=== PATIENT | male | born 1945 | race Hispanic/Latino ===

== ENCOUNTER 2018-10-12 12:36 | Inpatient (IN) | payer OTHER ==
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
[2018-10-12 13:28] LABS: Absolute Lymphocytes (CBC) 0.3 K/uL (0.7-4.9); Basophils % 0.1 % (0-1.3); Eosinophils % 0.9 % (0-4.4); Hematocrit 44.7 % (39.6-49.0); Lymphocytes % 2.6 % (15.3-44.8); MPV 9.2 fL (7.6-11.3); Monocytes % 2.8 % (3.3-12.3); RBC Red Blood Cell Count 5.06 M/uL (4.33-5.43)
[2018-10-12] MEDS ORDERED: NA CHLORIDE 0.9% 1,000 ML ONE ×3 (13:29→17:41)
[2018-10-12 13:30] LABS: Protime INR 1.38
[2018-10-12 13:47] LABS: Albumin 2.4 g/dL (3.4-5.0); Bilirubin Direct 0.2 mg/dL (0-0.2); Bilirubin Total 0.7 mg/dL (0.2-1.0); Magnesium 1.8 mg/dL (1.8-2.4); Potassium 5.1 mmol/L (3.5-5.1); Protein, Total 6.8 g/dL (6.4-8.2)
[2018-10-12 13:49] LABS: Troponin (Emerg Dept Use Only) 3.93 ng/mL (0.0-0.045)
--- NOTE | 2018-10-12 13:53 | RAD REPORT ---
EXAM DESCRIPTION: RAD - Chest Single View - 10/12/2018 1:34 pm CLINICAL HISTORY: Dyspnea COMPARISON: July 2015 TECHNIQUE: AP portable chest image was obtained 1314 hours . FINDINGS: Lung volumes are low. Shallow inspiration and large body habitus accentuate chest findings . No focal lung parenchymal process. No significant failure or volume overload. Pacemaker/defibrillator is in place. Trachea is midline. Heart and vasculature are normal. No measura ble pleural effusion and no pneumothorax. No acute bony abnormality seen. No acute aortic findings pang spected. IMPRESSION: No acute cardiopulmonary process. No worrisome change from comparison.
[2018-10-12 13:57] LABS: Dohle Bodies PRESENT; Platelet Estimate ADEQ
[2018-10-12 13:58] LABS: Blood Morphology Comment NOT SEEN (NOT SEEN)
[2018-10-12] MEDS ORDERED: Levofloxacin500mg IV 500 MG/100 ML BAG IV ONE (14:22)
[2018-10-12] MEDS ORDERED: LEVALBUTEROL 1.25 MG/3 ML NEB ONE (14:38)
[2018-10-12] MEDS ORDERED: METHYLPREDNISOLONE 125 MG INJ ONE (14:38)
[2018-10-12] MEDS ORDERED: FENTANYL CITR 100 MCG/2 ML ONE (14:39)
[2018-10-12] MEDS ORDERED: VANCOMYCIN/NS 1 gm 1 GM/250 ML BAG IV SCH (15:00)
--- NOTE | 2018-10-12 15:06 | EKG ---
Test Date: 2018-10-12 Test Time: 13:14:26 Safety Companion: RADHA MEASUREMENT RESULTS: Intervals: Rate: 83 OK: 108 QRSD: 154 QT: 414 QTc: 486 Ovid: P: 27 OK: 108 QRS: -88 T: 82 INTERPRETIVE STATEMENTS: Electronic ventricular pacemaker Compared to ECG 08/20/2015 17:39:29 Atrial-sensed ventricular-paced complex(es) or rhythm no longer present Electronically Signed On 10-12-18 15:05:20 CDT by Suraj Hooker
--- NOTE | 2018-10-12 15:16 | EDPHYS ---
Physician Documentation [facility] Name: Je Ch Age: 73 yrs Sex: Male : 1945 Arrival Date: 10/12/2018 Time: 12:37 Bed 8 Private MD: ED Physician Pasquale Beck HPI: 10/12 14:24 This 73 yrs old Male presents to ER via Ambulatory with complaints of jr8 Shortness Of Breath. 14:24 The patient has shortness of breath at rest. jr8 15:19 Onset: The symptoms/episode began/occurred suddenly, 2 day(s) ago. Duration: The jr8 symptoms are continuous. The patient's shortness of breath has no apparent modifying factors. Associated signs and symptoms: Pertinent positives: rash and arm pain bilaterally . Severity of symptoms: At their worst the symptoms were moderate in the emergency department the symptoms are unchanged. The patient has not experienced similar symptoms in the past. The patient has been recently seen by a physician:. Patient stated that he was scratched by a cat last week. Was healing fine and did not think anything of it. Stated that two days ago started to have a rash with blistering to both lower arms with increased swelling, redness, and drainage. Now having shortness of breath that he normally does not have . Historical: - Allergies: 12:57 Iodinated Contrast Media - IV Dye; ss - PMHx: 12:57 Diabetes - NIDDM; Hypertension; Myocardial infarction; ss - PSHx: 12:57 Heart stents; pacemaker; CABG; ss - Immunization history:: Adult Immunizations up to date. - Social history:: Smoking status: Patient/guardian denies using tobacco, but has a distant history of tobacco abuse. - Ebola Screening: : Patient denies exposure to infectious person Patient denies travel to an Ebola-affected area in the 21 days before illness onset. ROS: 15:20 Eyes: Negative for injury, pain, redness, and discharge, ENT: Negative for injury, jr8 pain, and discharge, Neck: Negative for injury, pain, and swelling, Cardiovascular: Negative for chest pain, palpitations, and edema, Abdomen/GI: Negative for abdominal pain, nausea, vomiting, diarrhea, and constipation, Back: Negative for injury and pain, MS/Extremity: Negative for injury and deformity, Neuro: Negative for headache, weakness, numbness, tingling, and seizure. 15:20 Respiratory: Positive for dyspnea on exertion, shortness of breath, wheezing. 15:20 Skin: Positive for erythema, lesions. Exam: 15:20 Eyes: Pupils equal round and reactive to light, extra-ocular motions intact. Lids and jr8 lashes normal. Conjunctiva and sclera are non-icteric and not injected. Cornea within normal limits. Periorbital areas with no swelling, redness, or edema. ENT: Nares patent. No nasal discharge, no septal abnormalities noted. Tympanic membranes are normal and external auditory canals are clear. Oropharynx with no redness, swelling, or masses, exudates, or evidence of obstruction, uvula midline. Mucous membranes moist. Neck: Trachea midline, no thyromegaly or masses palpated, and no cervical lymphadenopathy. Supple, full range of motion without nuchal rigidity, or vertebral point tenderness. No Meningismus. Cardiovascular: Regular rate and rhythm with a normal S1 and S2. No gallops, murmurs, or rubs. Normal PMI, no JVD. No pulse deficits. Abdomen/GI: Soft, non-tender, with normal bowel sounds. No distension or tympany. No guarding or rebound. No evidence of tenderness throughout. Back: No spinal tenderness. No costovertebral tenderness. Full range of motion. MS/ Extremity: Pulses equal, no cyanosis. Neurovascular intact. Full, normal range of motion. Neuro: Awake and alert, GCS 15, oriented to person, place, time, and situation. Cranial nerves II-XII grossly intact. Motor strength 5/5 in all extremities. Sensory grossly intact. Cerebellar exam normal. Normal gait. 15:20 Respiratory: mild respiratory distress is noted, Respirations: tachypnea, that is mild, Breath sounds: wheezing: expiratory that is mild, is heard diffusely. 15:20 Skin: Patient has bilateral lower arm bolus like blisters with erythema, serous discharge, and pustulous bloody discharge. No other rashes noted to body. Swelling and edema present to bother lower arms . Vital Signs: 12:57 Pulse 83; Resp 26; Temp 98.0(O); Pulse Ox 100% on R/A; Height 5 ft. 8 in. (172.72 cm); ss 13:19 BP 72 / 44 RL Supine (auto/lg); Pulse 82; Resp 17; Pulse Ox 100% ; sg 13:30 BP 91 / 60; Pulse 81; Resp 34; Pulse Ox 100% on 2 lpm NC; sv 14:00 BP 100 / 71; Pulse 82; Resp 25; Pulse Ox 99% on 2 lpm NC; sv 14:41 BP 94 / 57; Pulse 80 MON; Resp 31; Pulse Ox 100% on Nebulizer Mask; Weight 100.7 kg; sv 15:05 BP 107 / 69; Pulse 79; Resp 32; Pulse Ox 100% ; sv 15:30 BP 97 / 55; Pulse 74; Resp 23; Pulse Ox 99% on 2 lpm NC; sv 16:25 BP 99 / 60; Pulse 76; Resp 28; Pulse Ox 99% on 2 lpm NC; sv 17:00 BP 82 / 50; Pulse 77; Resp 30; Pulse Ox 97% on 2 lpm NC; sv 17:21 BP 84 / 71; Pulse 77; Resp 27; Pulse Ox 97% on 2 lpm NC; sv 17:30 BP 75 / 52; Pulse 74; Resp 29; Temp 98.4(A); Pulse Ox 98% on 30% BiPAP; sv 17:45 BP 92 / 61; Pulse 72; Resp 28; Pulse Ox 100% on 30% BiPAP; sv 18:06 BP 99 / 61; Pulse 76; Resp 29; Pulse Ox 100% on 30% BiPAP; sv 18:20 BP 102 / 63; Pulse 73; Resp 25; Pulse Ox 100% on 30% BiPAP; sv 18:32 BP 79 / 49; Pulse 84; Resp 26; Pulse Ox 99% on 30% BiPAP; sv 18:34 BP 96 / 65; Pulse 84; Resp 26; Pulse Ox 100% on 30% BiPAP; sv 14:41 Body Mass Index 33.75 (100.70 kg, 172.72 cm) sv 13:30 Paced sv 14:00 Paced sv 14:41 Paced sv 17:30 rate-16, 12/6 sv Procedures: 17:25 Central Line: the site was prepped with Betadine, in sterile fashion, a triple lumen jr8 catheter was inserted, in the right femoral vein, in 1 attempts. placement was verified, by blood return, the site was dressed with 4X4s, Tegaderm, foam tape, using sterile technique, the patient tolerated the procedure, well. MDM: 12:41 [facility] screened[facility] 15:13 Data reviewed: vital signs, nurses notes, lab test result(s), EKG, radiologic studies, jr8 plain films, and as a result, I will admit patient. Data interpreted: Pulse oximetry: on room air is 96 %. Interpretation: acceptable. Counseling: I had a detailed discussion with the patient and/or guardian regarding: the historical points, exam findings, and any diagnostic results supporting the discharge/admit diagnosis, lab results, radiology results, the need for further work-up and treatment in the hospital. Physician consultation: Mechelle Calhoun MD was called at 15:13, was contacted at 15:13, regarding admission, to the ICU, patient's condition, and will see patient. 10/12 12:43 Order name: Basic Metabolic Panel; Complete Time: 14:16 [facility] 10/12 12:43 Order name: CBC with Diff; Complete Time: 14:16 [facility] 10/12 12:43 Order name: LFT's; Complete Time: 14:16 [facility] 10/12 12:43 Order name: Magnesium; Complete Time: 14:16 [facility] 10/12 12:43 Order name: NT PRO-BNP; Complete Time: 14:16 [facility] 10/12 12:43 Order name: PT-INR; Complete Time: 13:47 [facility] 10/12 12:43 Order name: Troponin (emerg Dept Use Only); Complete Time: 14:16 [facility] 10/12 12:43 Order name: Blood Culture Adult (2) [facility] 10/12 12:43 Order name: Lipase; Complete Time: 13:47 [facility] 10/12 12:43 Order name: Urine Culture [facility] 10/12 12:43 Order name: Flu; Complete Time: 14:16 [facility] 10/12 12:43 Order name: Procalcitonin; Complete Time: 14:16 [facility] 10/12 12:43 Order name: Lactate; Complete Time: 14:16 [facility] 10/12 13:30 Order name: Wound Culture jr8 10/12 12:43 Order name: XRAY Chest (1 view); Complete Time: 14:16 [facility] 10/12 13:50 Order name: Manual Differential; Complete Time: 14:16 EDMS 10/12 14:24 Order name: Urine Dipstick--Ancillary (enter results); Complete Time: 15:36 bd 10/12 15:20 Order name: ABG; Complete Time: 16:20 jr8 10/12 15:38 Order name: Creatine Phosphokinase; Complete Time: 06:08 [facility] 10/12 15:39 Order name: Troponin I [facility] 10/12 15:39 Order name: Troponin I; Complete Time: 06:08 [facility] 10/12 15:39 Order name: Troponin I; Complete Time: 06:08 [facility] 10/12 15:39 Order name: Troponin I [facility] 10/12 15:42 Order name: Echo with Doppler [facility] 10/12 15:50 Order name: Upper Ext Artery Bilateral; Complete Time: 06:08 [facility] 10/12 15:52 Order name: Thyroid Stimulating Hormone; Complete Time: 17:27 [facility] 10/12 17:03 Order name: T4 Free; Complete Time: 17:27 [facility] 10/12 18:28 Order name: Lactate 10/12 12:43 Order name: EKG; Complete Time: 12:49 [facility] 10/12 12:43 Order name: Cardiac monitoring; Complete Time: 13:12 [facility] 10/12 12:43 Order name: EKG - Nurse/Tech; Complete Time: 13:12 [facility] 10/12 12:43 Order name: IV Saline Lock; Complete Time: 13:12 [facility] 10/12 12:43 Order name: Labs collected and sent; Complete Time: 13:12 [facility] 10/12 12:43 Order name: O2 Per Protocol; Complete Time: 13:12 [facility] 10/12 12:43 Order name: O2 Sat Monitoring; Complete Time: 13:12 [facility] 10/12 12:43 Order name: Urine Dipstick-Ancillary (obtain specimen); Complete Time: 14:19 [facility] 10/12 15:38 Order name: CONS Physician Consult [facility] 10/12 15:38 Order name: CONS Physician Consult [facility] 10/12 15:50 Order name: UPPER EXTREMITY VENOUS BILAT; Complete Time: 06:08 EDMO Administered Medications: 13:18 Drug: NS 0.9% 1000 ml Route: IV; Rate: 125 ml/hr; Site: left jugular; sg 19:06 Follow up: IV Status: Completed infusion sv 14:20 Drug: LevaQUIN 500 mg Volume: 100 ml; Route: IVPB; Infused Over: 60 mins; Site: left sv jugular; 16:26 Follow up: Response: No adverse reaction; IV Status: Completed infusion; IV Intake: sv 100ml 14:30 Drug: NS 0.9% (30 ml/kg) 30 ml/kg Route: IV; Rate: bolus; Site: left jugular; sv 18:50 Follow up: Response: No adverse reaction; IV Status: Completed infusion; IV Intake: sv 3000ml 14:39 Drug: SOLU-Medrol 125 mg Route: IVP; Site: left jugular; sv 14:44 Follow up: Response: No adverse reaction sv 14:39 Drug: Xopenex (3) 1.25 mg Route: Inhalation; sv 16:26 Drug: vancoMYCIN 1 grams Route: IVPB; Infused Over: 2 hrs; Site: left jugular; sv 18:30 Follow up: Response: No adverse reaction; IV Status: Completed infusion; IV Intake: sv 250ml Disposition: 17:26 Critical Care:. jr8 10/13 05:52 Co-signature as Attending Physician, Pasquale Beck MD I agree with the assessment and elsy plan of care. Disposition: 10/12/18 15:15 Hospitalization ordered by Mechelle Calhoun for Inpatient Admission. Preliminary diagnosis are Sepsis, Cellulitis of left upper limb, Cellulitis of right upper limb, Acute kidney failure, Non-ST elevation (NSTEMI) myocardial infarction. - Bed requested for Intensive Care Unit. - Status is Inpatient Admission. sv - Condition is Fair. - Problem is new. - Symptoms have improved. UTI on Admission? No Critical care time excluding procedures: 10/12 17:26 Critical care time: Bedside Care: 20 minutes, Consultation: 10 minutes, Family jr8 Intervention: 10 minutes. Total time: 40 minutes Signatures: Dispatcher [employer] EDMO Melissa West Stephanie, RN RN sv Gay, Steven, RN RN sg Anderson, Corey, MD MD cha Smirch, Shelby, RN RN ss Roszak, Josh, PA PA jr8 Corrections: (The following items were deleted from the chart) 13:50 13:39 CBC Smear Scan ordered. EDMO EDMO 15:20 14:24 The patient has shortness of breath at rest, jr8 jr8 15:38 15:15 Hospitalization Ordered by Mechelle Calhoun MD for Inpatient Admission. Preliminary jr8 diagnosis is Sepsis; Cellulitis of left upper limb; Cellulitis of right upper limb. Bed requested for Intensive Care Unit. Status is Inpatient Admission. Condition is Fair. Problem is new. Symptoms have improved. UTI on Admission? No. jr8 15:51 15:38 Thyroid Stimulating Hormone ordered. [facility] EDMO 17:01 15:38 10/12/2018 15:15 Hospitalization Ordered by Mechelle Calhoun MD for Inpatient bd Admission. Preliminary diagnosis is Sepsis; Cellulitis of left upper limb; Cellulitis of right upper limb; Acute kidney failure; Non-ST elevation (NSTEMI) myocardial infarction. Bed requested for Intensive Care Unit. Status is Inpatient Admission. Condition is Fair. Problem is new. Symptoms have improved. UTI on Admission? No. jr8 18:59 17:01 10/12/2018 15:15 Hospitalization Ordered by Mechelle Calhoun MD for Inpatient sv Admission. Preliminary diagnosis is Sepsis; Cellulitis of left upper limb; Cellulitis of right upper limb; Acute kidney failure; Non-ST elevation (NSTEMI) myocardial infarction. Bed requested for Intensive Care Unit. Status is Inpatient Admission. Condition is Fair. Problem is new. Symptoms have improved. UTI on Admission? No. bd
--- NOTE | 2018-10-12 15:16 | ER ---
Nurse's Notes [facility] Name: Je Ch Age: 73 yrs Sex: Male : 1945 Arrival Date: 10/12/2018 Time: 12:37 Bed 8 Private MD: Diagnosis: Sepsis;Cellulitis of left upper limb;Cellulitis of right upper limb;Acute kidney failure;Non-ST elevation (NSTEMI) myocardial infarction Presentation: 10/12 12:38 Presenting complaint: Patient states: Redness, swelling, drainage and severe pain to ss bilateral forearms and hands that began 2 days ago. Sent from [place] for further evaluation/ higher level of care. Transition of care: patient was not received from another setting of care. Onset of symptoms was October 10, 2018. Risk Assessment: Do you want to hurt yourself or someone else? Patient reports no desire to harm self or others. Initial Sepsis Screen: Does the patient meet any 2 criteria? RR > 20 per min. Does the patient have a suspected source of infection? Yes: Skin breakdown/wound. Care prior to arrival: dressing placed to bilateral arms by [facility]. Removed by Myself and MG Castillo for assessment. 12:38 Method Of Arrival: Ambulatory 12:38 Acuity: GENEVIEVE 2 ss Historical: - Allergies: 12:57 Iodinated Contrast Media - IV Dye; ss - PMHx: 12:57 Diabetes - NIDDM; Hypertension; Myocardial infarction; ss - PSHx: 12:57 Heart stents; pacemaker; CABG; ss - Immunization history:: Adult Immunizations up to date. - Social history:: Smoking status: Patient/guardian denies using tobacco, but has a distant history of tobacco abuse. - Ebola Screening: : Patient denies exposure to infectious person Patient denies travel to an Ebola-affected area in the 21 days before illness onset. Screenin:20 Abuse screen: Denies threats or abuse. Denies injuries from another. Nutritional sv screening: No deficits noted. Tuberculosis screening: No symptoms or risk factors identified. Fall Risk None identified. Assessment: 13:00 General: Appears distressed, uncomfortable, well developed, Behavior is calm, sv cooperative, appropriate for age. Pain: Complains of pain in right arm and left arm Pain currently is 10 out of 10 on a pain scale. Quality of pain is described as tender, throbbing, Is continuous, Aggravated by increased activity, repositioning. Neuro: Level of Consciousness is awake, alert, obeys commands, Oriented to person, place, time, situation, Moves all extremities. Speech is normal. Cardiovascular: Patient's skin is warm and dry. Rhythm is ventricular pacer with capture. Respiratory: Reports shortness of breath at rest on exertion labored breathing Airway is patent Respiratory effort is even, labored, Respiratory pattern is symmetrical, tachypnea. Derm: Skin with poor turgor Skin is normal, redness, swelling, weeping, fluid filled blisters on BUE. 14:20 Reassessment: Patient appears in no apparent distress at this time. No changes from sv previously documented assessment. Patient and/or family updated on plan of care and expected duration. Pain level reassessed. Patient is alert, oriented x 3, equal unlabored respirations, skin warm/dry/pink. 14:25 Reassessment: Informed Jonh HOLLIDAY that pt has audible wheezing, updated vitals. Medication sv orders received. 15:35 Reassessment: ABG ordered by Jonh HOLLIDAY, pt refuses d/t pain from arms. Informed Jonh HOLLIDAY, sv ok to do a VBG. VBG drawn and given to Roxy CLIP ON SUNGLASSES ASSEMBLER to be ran. 15:41 Reassessment: Patient appears in no apparent distress at this time. No changes from sv previously documented assessment. Patient and/or family updated on plan of care and expected duration. Pain level reassessed. Patient is alert, oriented x 3, equal unlabored respirations, skin warm/dry/pink. 16:26 Reassessment: Patient appears in no apparent distress at this time. Patient and/or sv family updated on plan of care and expected duration. Pain level reassessed. 17:15 Reassessment: Patient appears in no apparent distress at this time. No changes from sv previously documented assessment. Patient and/or family updated on plan of care and expected duration. Pain level reassessed. 17:25 Reassessment: Dr Calhoun at the bedside. sv 17:30 Reassessment: Roxy CLIP ON SUNGLASSES ASSEMBLER at bedside with BIPAP. sv 17:34 Reassessment: Ultrasound at the bedside. sv 18:06 General: Appears in no apparent distress. comfortable, Behavior is calm, cooperative, sv appropriate for age. Neuro: Level of Consciousness is obeys commands, sleepy but can be woken up with no difficulty. BIPAP on pt.. Oriented to person, place, time, situation. Cardiovascular: Patient's skin is warm and dry. Rhythm is ventricular pacer with capture. Respiratory: Airway is patent Respiratory effort is even, unlabored, Respiratory pattern is symmetrical, tachypnea. 18:41 Reassessment: Repeat lactate sent to lab. sv Vital Signs: 12:57 Pulse 83; Resp 26; Temp 98.0(O); Pulse Ox 100% on R/A; Height 5 ft. 8 in. (172.72 cm); ss 13:19 BP 72 / 44 RL Supine (auto/lg); Pulse 82; Resp 17; Pulse Ox 100% ; sg 13:30 BP 91 / 60; Pulse 81; Resp 34; Pulse Ox 100% on 2 lpm NC; sv 14:00 BP 100 / 71; Pulse 82; Resp 25; Pulse Ox 99% on 2 lpm NC; sv 14:41 BP 94 / 57; Pulse 80 MON; Resp 31; Pulse Ox 100% on Nebulizer Mask; Weight 100.7 kg; sv 15:05 BP 107 / 69; Pulse 79; Resp 32; Pulse Ox 100% ; sv 15:30 BP 97 / 55; Pulse 74; Resp 23; Pulse Ox 99% on 2 lpm NC; sv 16:25 BP 99 / 60; Pulse 76; Resp 28; Pulse Ox 99% on 2 lpm NC; sv 17:00 BP 82 / 50; Pulse 77; Resp 30; Pulse Ox 97% on 2 lpm NC; sv 17:21 BP 84 / 71; Pulse 77; Resp 27; Pulse Ox 97% on 2 lpm NC; sv 17:30 BP 75 / 52; Pulse 74; Resp 29; Temp 98.4(A); Pulse Ox 98% on 30% BiPAP; sv 17:45 BP 92 / 61; Pulse 72; Resp 28; Pulse Ox 100% on 30% BiPAP; sv 18:06 BP 99 / 61; Pulse 76; Resp 29; Pulse Ox 100% on 30% BiPAP; sv 18:20 BP 102 / 63; Pulse 73; Resp 25; Pulse Ox 100% on 30% BiPAP; sv 18:32 BP 79 / 49; Pulse 84; Resp 26; Pulse Ox 99% on 30% BiPAP; sv 18:34 BP 96 / 65; Pulse 84; Resp 26; Pulse Ox 100% on 30% BiPAP; sv 14:41 Body Mass Index 33.75 (100.70 kg, 172.72 cm) sv 13:30 Paced sv 14:00 Paced sv 14:41 Paced sv 17:30 rate-16, 12/6 sv ED Course: 12:37 Patient arrived in ED. as 12:41 Pasquale Beck MD is Attending Physician. elsy 12:52 Louisa Clayton, STIVEN is Primary Nurse. sv 12:56 Triage completed. ss 12:57 Arm band placed on right wrist. ss 13:05 Jonh Hensley PA is PHCP. jr8 13:10 EJ PIV access. Initial lab(s) drawn, by ED staff, sent to lab. Inserted saline lock: 20 sg gauge in left EJ, using aseptic technique. Blood collected. IV inserted by Jonathan HOLLIDAY. 13:10 First set of blood cultures drawn by physician. sv 13:20 Patient has correct armband on for positive identification. Placed in gown. Bed in low sv position. Call light in reach. Side rails up X2. Adult w/ patient. threat monitoring analyst on. Pulse ox on. NIBP on. Door closed. Head of bed elevated. 13:35 XRAY Chest (1 view) In Process Unspecified. EDMS 13:38 Flu and/or RSV swab sent to lab. sg 13:45 Second set of blood cultures drawn by physician. sv 15:14 Mechelle Calhoun MD is Hospitalizing Provider. jr8 17:20 Assisted provider with central line placement. Set up central line tray. Triple lumen sv line placed in right femoral. Line placed by Jonh HOLLIDAY Placement verified by blood return, Dressed with Tegaderm, Patient tolerated well. Before procedure, did Practitioner(s) obtain informed consent? No. Patient \T\ family education about procedure, CLABSI prevention and S/S of infection? Yes. Time-out/Briefing performed prior to start of procedure? Yes. Was handwashing/sanitizing done immediately prior to procedure? Yes. Was patient positioned to in a way to prevent air embolism? Yes. Was procedure site sterilized? Yes, with chlorhexidine. Was the site allowed to dry? Yes. Was local anesthetic and/or sedation utilized? Yes. During the procedure, did the Practitioner(s) maintain a sterile field? Yes. Were unused ports clamped during insertion? Yes. Was a 2nd qualified MD obtained after 3 unsuccessful insertion attempts? Yes. Was blood aspirated from each lumen? Yes. After the procedure, did the Practitioner(s) clean the site and apply a sterile dressing? Yes. 18:08 Patient admitted, IV remains in place. intact. sv Administered Medications: 13:18 Drug: NS 0.9% 1000 ml Route: IV; Rate: 125 ml/hr; Site: left jugular; sg 19:06 Follow up: IV Status: Completed infusion sv 14:20 Drug: LevaQUIN 500 mg Volume: 100 ml; Route: IVPB; Infused Over: 60 mins; Site: left sv jugular; 16:26 Follow up: Response: No adverse reaction; IV Status: Completed infusion; IV Intake: sv 100ml 14:30 Drug: NS 0.9% (30 ml/kg) 30 ml/kg Route: IV; Rate: bolus; Site: left jugular; sv 18:50 Follow up: Response: No adverse reaction; IV Status: Completed infusion; IV Intake: sv 3000ml 14:39 Drug: SOLU-Medrol 125 mg Route: IVP; Site: left jugular; sv 14:44 Follow up: Response: No adverse reaction sv 14:39 Drug: Xopenex (3) 1.25 mg Route: Inhalation; sv 16:26 Drug: vancoMYCIN 1 grams Route: IVPB; Infused Over: 2 hrs; Site: left jugular; sv 18:30 Follow up: Response: No adverse reaction; IV Status: Completed infusion; IV Intake: sv 250ml Intake: 16:26 IV: 100ml; Total: 100ml. sv 18:30 IV: 250ml; Total: 350ml. sv 18:50 IV: 3000ml; Total: 3350ml. sv Outcome: 15:15 Decision to Hospitalize by Provider. jr8 17:52 Admitted to ICU accompanied by nurse, accompanied by tech, family with patient, via sv stretcher, room 1, with oxygen, on monitor, with chart, Report called to Mesha SALEEM 17:52 Condition: stable 17:52 Instructed on the need for admit. 18:59 Patient left the ED. sv Signatures: Dispatcher [employer] Louisa Arvizu RN RN sv Gay, Steven, RN RN sg Anderson, Corey, MD MD cha Martinez, Amelia as Smirch, Louisa, RN RN ss Jonh Hensley PA PA jr8 Corrections: (The following items were deleted from the chart) 18:06 17:30 BP 75 / 52; Pulse 74bpm; Resp 29bpm; Pulse Ox 98% 02 30% BiPAP; Temp 98.4F sv Axillary; sv
[2018-10-12 15:32] LABS: Urine Blood 1+ (NEG); Urine Glucose NEGATIVE (NEG); Urine Protein 3+ (NEG); Urine Specific Gravity 1.025 (1.005-1.030)
[2018-10-12 15:40] LABS: Blood O2 Saturation 73.2 % (92-98.5)
[2018-10-12 16:49] LABS: Thyroid Stimulating Hormone 4.4 uIU/mL (0.360-3.740)
[2018-10-12] MEDS ORDERED: AZITHROMYCIN IV 500 MG in NA CHLORIDE 0.9% 250 ML IVPB SCH (17:00)
--- NOTE | 2018-10-12 17:01 | P.HP ---
Certification for Inpatient Patient admitted to: Inpatient With expected LOS: >2 Midnights Patient will require the following post-hospital care: None Practitioner: I am a practitioner with admitting privileges, knowledge of patient current condition, hospital course, and medical plan of care. Services: Services provided to patient in accordance with Admission requirements found in Title 42 Section 412.3 of the Code of Federal Regulations Patient History Date of Service: 10/12/18 Primary Care Provider: [facility] Reason for admission: BL UE swelling and SOB History of Present Illness: The 73-year-old male with significant past medical history of diabetes, hypertension, hyperlipidemia, MARIZA who presented to the ED complaining of having bilateral upper extremity swelling. Patient also complained of having some shortness of breath. Patient stated that his swelling had started on Thursday night and then he started getting short of breath on Thursday night. Patient was not getting better and thus he got worse progressively and thus decided to come to the ER. Patient stated that about a week ago he was scratched by his cat but no other trauma was noted. [facility] which he was sent over here for further workup. Patient denies having any fever chills nausea vomiting abdominal pain chest pain or any other associated symptoms. No sick contacts. No open wounds prior to this episode. In the ER patient had extensive workup done, workup was consistent with sepsis and patient also had respiratory distress and thus the decision was made to admit the patient to the ICU for further workup and treatment. Allergies No Known Drug Allergies Allergy (Unverified 04/17/14 03:00) Unknown No Allergy Information Av Allergy (Uncoded 08/20/15 19:16) Unknown Home medications list reviewed: Yes - Past Medical/Surgical History Has patient received pneumonia vaccine in the past: No Diabetic: Yes -: HTN -: Diabetes -: CAD -: Defibrillator/pacemaker in place -: Obesity - Family History Family History: Reviewed- Non-Contributory - Social History Smoking Status: Former smoker Counseled patient to stop smoking for: more than 10 minutes Smoking therapy provided: Yes Patient receptive to therapy: Yes Alcohol use: No CD- Drugs: No Caffeine use: No Place of Residence: Home Review of Systems 10-point ROS is otherwise unremarkable Physical Examination - Physical Exam General: Alert, Mild distress Respiratory: Normal air movement, Expiratory wheezes, Inspiratory wheezes Cardiovascular: Regular rate/rhythm, Normal S1 S2 Gastrointestinal: Normal bowel sounds, No tenderness Musculoskeletal: Erythema, Tenderness, Warmth, Other (Bilateral upper extremity with swelling, bulae and ) Integumentary: Skin breakdown, Skin lesion, Tenderness/swelling, Erythema, Warmth Neurological: Normal speech, Normal tone Lymphatics: No axilla or inguinal lymphadenopathy - Studies Laboratory Data (last 24 hrs) 10/12/18 13:00: Lipase 40 L 10/12/18 13:00: PT 16.1 H, INR 1.38 10/12/18 13:00: WBC 12.0 H, Hgb 14.6, Hct 44.7, Plt Count 266 10/12/18 13:00: Sodium 133 L, Potassium 5.1, BUN 65 H, Creatinine 3.18 H, Glucose 147 H, Magnesium 1.8, Total Bilirubin 0.7, AST 67 H, ALT 37, Alkaline Phosphatase 100 Microbiology Data (last 24 hrs): 10/12/18 13:30 Nasopharnyx Influenza Type A Antigen Screen - Final 10/12/18 13:30 Nasopharnyx Influenza Type B Antigen Screen - Final Assessment and Plan - Problems (Diagnosis) (1) Sepsis Current Visit: Yes Status: Acute Plan: Patient currently with severe sepsis, with fluctuating blood pressure and tachycardia most likely secondary to bilateral upper extremity infection -initial pro calcitonin and lactic acid elevated -blood culture and wound cultures collected pending at this time -started on IV vanc and levaquin in the ER. will also add IV zosyn. -will follow up with wound culture and blood cultures here shortly Qualifiers: Sepsis type: sepsis due to unspecified organism Qualified Code(s): A41.9 - Sepsis, unspecified organism (2) Cellulitis of upper extremity Current Visit: Yes Status: Acute Plan: Bilateral upper extremity cellulitis after a cat scratch possibly cat scratch disease -currently bilateral extremity swelling erythematous and tender to touch wiht bullae -started on IV vancomycin and zosyn -will get extremity venous and arterial Dopplers to rule out any acute abnormality -patient was also given IV steroids in the ER -will follow patient closely and follow up with wound cultures and imaging studies Qualifiers: Laterality: unspecified laterality Qualified Code(s): L03.119 - Cellulitis of unspecified part of limb (3) Respiratory distress Current Visit: Yes Status: Acute Plan: Respiratory distress with initial tachypnea and tachycardia patient with history of MARIZA -ABGs with respiratory acidosis. Will start patient on BiPAP at this time -will monitor patient closely, x-ray with no acute abnormality (4) UBALDO (acute kidney injury) Current Visit: Yes Status: Acute Plan: UBALDO most likely secondary to ATN -IV fluids at 50 cc an hr cautious given the elevated BNP -nephrology consulted. Awaiting recommendations at this time will monitor closely (5) CAD (coronary artery disease) Current Visit: Yes Status: Acute Plan: CAD with history of CABG and defibrillator/pacemaker placed -will monitor closely -initial troponins were elevated most likely secondary to sepsis -cardiology is consulted. Will await further recommendation -elevated BNP as well -echocardiogram with ejection fraction of 61 percentage with dilated ventricles. Qualifiers: Coronary Disease-Associated Artery/Lesion type: pala artery [place] vs. transplanted heart: pala heart Associated angina: with stable angina Qualified Code(s): I25.118 - Atherosclerotic heart disease of pala coronary artery with other forms of angina pectoris (6) Hypertension Current Visit: Yes Status: Chronic Plan: Currently patient is hypotensive will continue to monitor here in the hospital Qualifiers: Hypertension type: essential hypertension Qualified Code(s): I10 - Essential (primary) hypertension (7) Diabetes Current Visit: Yes Status: Chronic Plan: Insulin sliding scale and Accu-Cheks Qualifiers: Diabetes mellitus type: type 2 Diabetes mellitus bed bug exterminator insulin use: without bed bug exterminator use Diabetes mellitus complication status: without complication Qualified Code(s): E11.9 - Type 2 diabetes mellitus without complications Discharge Plan: Home Plan to discharge in: Greater than 2 days - Advance Directives Does patient have a Living Will: No Does patient have a Durable POA for Healthcare: No - Code Status/Comfort Care Code Status Assessed: Yes Critical Care: Yes
[2018-10-12] MEDS ORDERED: NA CHLORIDE 0.9% 1,000 ML IV SCH ×2 (17:32→18:00)
[2018-10-12] MEDS ORDERED: ALBUTEROL 2.5 MG/3 ML NEB SOL NEB PRN (17:32)
[2018-10-12] MEDS ORDERED: IPRATROPIUM BROM 0.5MG/2.5ML NEB PRN (17:32)
[2018-10-12] MEDS ORDERED: PIPER/TAZO/NS 2.25gm 2.25 GM/50 ML BAG IVPB SCH (18:00)
--- NOTE | 2018-10-12 18:54 | RAD REPORT ---
EXAM DESCRIPTION: US - Upper Ext Artery Bilateral - 10/12/2018 6:32 pm CLINICAL HISTORY: Swelling and Infection Arm pain COMPARISON: No comparisons FINDINGS: Doppler interrogation of both upper extremity arterial systems was performed. Normal triph asic waveforms are seen throughout both upper extremity arterial systems proximally. Distal artery as sessment was precluded by clinical situation. No occlusion or high-grade stenosis. IMPRESSION: Negative study.
--- NOTE | 2018-10-12 18:55 | RAD REPORT ---
EXAM DESCRIPTION: US - UPPER EXTREMITY VENOUS BILAT - 10/12/2018 6:32 pm CLINICAL HISTORY: Swelling and Infection COMPARISON: No comparisons FINDINGS: No evidence of deep venous thrombosis seen above the level of the antecubital veins bilate rally in the upper extremity venous system. The distal veins could not be assessed due to the patient 's clinical status. IMPRESSION: Negative study.
[2018-10-12] MEDS ORDERED: PIPER/TAZO/NS 2.25gm 2.25 GM/50 ML BAG IVPB ONE (19:00)
[2018-10-12] MEDS: ENOXAPARIN 40 MG/0.4 ML SQ SCH (19:22)
[2018-10-12] MEDS ORDERED: NA CHLORIDE 0.9% 50 ML ONE (19:47)
[2018-10-12] MEDS ORDERED: VANCOMYCIN 1.5 GM in NA CHLORIDE 0.9% 500 ML IVPB ONE (21:00)
[2018-10-12 21:39] LABS: Troponin I 2.42 ng/mL (0.0-0.045)
[2018-10-12] MEDS: D5W 1,000 ML with NA BICARB 8.4% 100 MEQ IV SCH ×2 (22:35)
[2018-10-12] MEDS ORDERED: NOREPINEPHRINE 4 MG/4 ML VIAL ONE (22:36)
[2018-10-12] MEDS ORDERED: D5W 250 ML IV ONE (22:36)
[2018-10-12] MEDS ORDERED: D5W 1,000 ML IV ONE (22:37)
[2018-10-12] MEDS: NOREPINEPHRINE 4 MG in D5W 250 ML IV PRN (23:05)
[2018-10-13] MEDS: PIPER/TAZO/NS 2.25gm 2.25 GM/50 ML BAG IVPB SCH ×2 (01:24→09:45)
[2018-10-13 05:09] LABS: Absolute Lymphocytes (CBC) 0.1 K/uL (0.7-4.9); Basophils % 0.1 % (0-1.3); Eosinophils % 0.4 % (0-4.4); Hematocrit 35.4 % (39.6-49.0); Lymphocytes % 1.9 % (15.3-44.8); MPV 9.2 fL (7.6-11.3); Monocytes % 1.5 % (3.3-12.3); RBC Red Blood Cell Count 4.08 M/uL (4.33-5.43)
[2018-10-13 05:26] LABS: Albumin 1.7 g/dL (3.4-5.0); Bilirubin Total 0.5 mg/dL (0.2-1.0); Magnesium 1.8 mg/dL (1.8-2.4); Phosphorus 3.3 mg/dL (2.5-4.9); Protein, Total 5.3 g/dL (6.4-8.2)
[2018-10-13 05:27] LABS: Troponin I 1.78 ng/mL (0.0-0.045)
[2018-10-13] MEDS ORDERED: MAGNESIUM SULFATE 1 gm IVPB 1 GM/100 ML BAG IV ONE (05:31)
[2018-10-13] MEDS ORDERED: FENTANYL CITR 100 MCG/2 ML IV PRN (06:12)
[2018-10-13] MEDS ORDERED: ALBUMIN HUMAN 25% 100 ML IV ONE (06:12)
[2018-10-13] MEDS ORDERED: NA CHLORIDE 0.9% 500 ML IV ONE (06:24)
--- NOTE | 2018-10-13 08:06 | RAD REPORT ---
EXAM DESCRIPTION: [place] Single View10/13/2018 5:46 am CLINICAL HISTORY: Shortness of breath COMPARISON: October 12, 2018 FINDINGS: The lungs appear clear of acute infiltrate. The heart is mildly enlarged. Postsurgical changes involve the chest. IMPRESSION: No acute abnormalities displayed
--- NOTE | 2018-10-13 08:38 | ECHO ---
HEIGHT: 5 ft 8 in WEIGHT: 224 lb 4.8 oz DATE OF STUDY: 10/12/[address]: Mechelle Calhoun MD 2-DIMENSIONAL: YES M.MODE: YES DOPPLER: YES COLOR FLOW: YES TDS: NO PORTABLE: NO DEFINITY: NO BUBBLE STUDY: NO DIAGNOSIS: CONGESTIVE HEART FAILURE CARDIAC HISTORY: CATHERIZATION: NO SURGERY: NO PROSTHETIC VALVE: NO PACEMAKER: YES MEASUREMENTS (cm) DIASTOLIC (NORMALS) SYSTOLIC (NORMALS) IVSd 1.2 (0.6-1.2) LA Diam (1.9-4.0) LVEF 61% LVIDd 4.1 (3.5-5.7) LVIDs 2.8 (2.0-3.5) %FS 32% LVPWd 1.3 (0.6-1.2) Ao Diam 2.9 (2.0-3.7) 2 DIMENSIONAL ASSESSMENT: RIGHT ATRIUM: NORMAL LEFT ATRIUM: DILATED RIGHT VENTRICLE: PACEMAKER CATHETER LEFT VENTRICLE: LEFT VENTRICULAR HYPERTROPHY TRICUSPID VALVE: NORMAL MITRAL VALVE: NORMAL PULMONIC VALVE: NORMAL AORTIC VALVE: NORMAL PERICARDIAL EFFUSION: NONE AORTIC ROOT: NORMAL LEFT VENTRICULAR WALL MOTION: NORMAL DOPPLER/COLOR FLOW: NORMAL COMMENTS: NORMAL LEFT VENTRICULAR EJECTION FRACTION. LEFT VENTRICULAR HYPERTROPHY. DILATED LEFT ATRIUM. PACEMAKER IN RIGHT VENTRICLE. TECHNOLOGIST: Fern CARVER
--- NOTE | 2018-10-13 09:15 | CON ---
History Of Present Illness: Mr. Ch is 73. He came to the hospital with weakness, fevers, chi lls, and the skin on his arms, especially the forearms, looks very abnormal like there is both cellul itis and blebs, all this consistent with sepsis. I am asked to see him because his troponins are yane vated. They are elevated consistently, not in a rising and falling pattern as is usually seen with a myocardial infarction. He is not having chest pain. An echocardiogram has been done and it does no t show any wall motion abnormality, ejection fraction is normal, and it is very likely that the tropo red elevation is not an indication of acute coronary syndrome but a secondary effect of septicemia. The patient has a history of stents being put in his heart; the last one was at least several years a go. He has had a pacemaker for several years. It has been revised several times, and the most recen t revision, it is a defibrillator. There is no evidence of defibrillator malfunction by telemetry mo nitor and no defibrillator discharges. Physical Examination: General: He is 5 feet 8 inches, 224 pounds. Vital Signs: Blood pressure 96/50, heart rate 83. He appears to be in sinus rhythm with atrial sens ing, ventricular pacing. Lungs: Clear. Heart: Within normal limits. Abdomen: Soft. Skin: The skin on both forearms has large blebs and evidence of cellulitis. Laboratory Data: He had an elevated white count when he came in. Today's white blood cell count is 7.9 with a left shift. Troponins 3.93, 2.42, 1.78. Procalcitonin level was 85, consistent with sept icemia. A lactic acid level was 5.3 also. Assessment And Plan: So, I think we can safely attribute the troponin elevation to septicemia and no t consider this to be an acute coronary syndrome or myocardial infarction. SH/MODL Voice ID: [id number] Report ID: [id number]
[2018-10-13] MEDS: D5W 1,000 ML with NA BICARB 8.4% 100 MEQ IV SCH ×2 (09:45)
[2018-10-13] MEDS: ENOXAPARIN 40 MG/0.4 ML SQ SCH (09:46)
[2018-10-13] MEDS ORDERED: GLUCAGON 1 MG/VIAL IM PRN (11:11)
[2018-10-13] MEDS ORDERED: D50W 25 GM/50 ML SYRINGE IV PRN (11:11)
[2018-10-13] MEDS: INSULIN -REGULAR HUMAN 50 UNIT/0.5 ML ML SQ SCH ×2 (12:00→16:27)
--- NOTE | 2018-10-13 12:12 | P.PN ---
Subjective Date of Service: 10/13/18 Primary Care Provider: [facility] Chief Complaint: BL UE swelling and SOB Patient seen and examined at bedside with RN. Chart reviewed. Case discussed with general surgery, nephrology, cardiology, and patient at bedside. Overnight patient was found to have hypotension and was started on Levophed for pressure support. At this time patient is pending transfer to the [facility]. Review of Systems 10-point ROS is otherwise unremarkable Physical Examination - Vital Signs Temperature: 97.5 F Blood Pressure: 99/61 Pulse: 72 Respirations: 28 Pulse Ox (%): 99 - Physical Exam General: Alert, In no apparent distress Respiratory: Normal air movement, Expiratory wheezes, Inspiratory wheezes Cardiovascular: Regular rate/rhythm, Normal S1 S2, Edema Gastrointestinal: Normal bowel sounds, No tenderness Musculoskeletal: Erythema, Tenderness, Warmth, Other (Bullae and BL Cellulitis ) Integumentary: Rash(es), Skin breakdown, Skin lesion, Tenderness/swelling, Erythema, Warmth Neurological: Normal speech, Normal tone, Normal affect Lymphatics: No axilla or inguinal lymphadenopathy - Studies Laboratory Data (last 24 hrs) 10/12/18 13:00: Lipase 40 L 10/12/18 13:00: PT 16.1 H, INR 1.38 10/12/18 13:00: WBC 12.0 H, Hgb 14.6, Hct 44.7, Plt Count 266 10/12/18 13:00: Sodium 133 L, Potassium 5.1, BUN 65 H, Creatinine 3.18 H, Glucose 147 H, Magnesium 1.8, Total Bilirubin 0.7, AST 67 H, ALT 37, Alkaline Phosphatase 100 Microbiology Data (last 24 hrs): 10/12/18 13:30 Nasopharnyx Influenza Type A Antigen Screen - Final 10/12/18 13:30 Nasopharnyx Influenza Type B Antigen Screen - Final Medications List Reviewed: Yes Assessment And Plan - Current Problems (Diagnosis) (1) Sepsis Current Visit: Yes Status: Acute Plan: Patient currently with severe sepsis with shock, with hydrodynamic Instability most likely secondary to bilateral upper extremity infection -initial pro calcitonin and lactic acid elevated -blood culture and wound cultures collected pending at this time -on IV doxycycline , Zosyn and Rocephin -higher risk for vibrio vulnificus given their history of [employer] fishing recently after which his cellulitis started -currently also on Levophed for pressure support Qualifiers: Sepsis type: sepsis due to unspecified organism Qualified Code(s): A41.9 - Sepsis, unspecified organism (2) Cellulitis of upper extremity Current Visit: Yes Status: Acute Plan: Bilateral upper extremity cellulitis possibly infection with repairable in thickness with recent exposure to swallow water and fish -currently bilateral extremity swelling erythematous and tender to touch with bullae -on IV doxycycline, Zosyn and Rocephin -extremity venous and artery Dopplers are negative at this time for any acute abnormality -wound care consulted. Awaiting recommendations. Will provide with wet dressing at this time -patient has extreme water losses through the wounds at this time. Will start transfer process to the [facility] for continuation of care and possible burn unit placement Qualifiers: Laterality: unspecified laterality Qualified Code(s): L03.119 - Cellulitis of unspecified part of limb (3) Respiratory distress Current Visit: Yes Status: Acute Plan: Respiratory distress with initial tachypnea and tachycardia patient with history of MARIZA -ABGs with respiratory acidosis. On BiPAP at this time -we patient to nasal cannula as tolerated -will monitor patient closely, x-ray with no acute abnormality (4) UBALDO (acute kidney injury) Current Visit: Yes Status: Acute Plan: UBALDO most likely secondary to ATN versus ibuprofen use -IV fluids at 100 ml/hr -nephrology consulted. Recommendations appreciated at this time -BUN and creatinine improving today (5) CAD (coronary artery disease) Current Visit: Yes Status: Acute Plan: CAD with history of CABG and defibrillator/pacemaker placed -will monitor closely -initial troponins were elevated most likely secondary to sepsis -cardiology is consulted. Ruminations of appreciated at this time -echocardiogram with ejection fraction of 61 percentage with dilated ventricles. Qualifiers: Coronary Disease-Associated Artery/Lesion type: [place] artery [place] vs. transplanted heart: [place] heart Associated angina: with stable angina Qualified Code(s): I25.118 - Atherosclerotic heart disease of [place] coronary artery with other forms of angina pectoris (6) Hypertension Current Visit: Yes Status: Chronic Plan: Currently patient is hypotensive will continue to monitor here in the hospital Qualifiers: Hypertension type: essential hypertension Qualified Code(s): I10 - Essential (primary) hypertension (7) Diabetes Current Visit: Yes Status: Chronic Plan: Insulin sliding scale and Accu-Cheks Qualifiers: Diabetes mellitus type: type 2 Diabetes mellitus superintendent marine oil terminal insulin use: without superintendent marine oil terminal use Diabetes mellitus complication status: without complication Qualified Code(s): E11.9 - Type 2 diabetes mellitus without complications Discharge Plan: Home Plan to discharge in: Greater than 2 days - Code Status/Comfort Care Code Status Assessed: Yes Critical Care: Yes
[2018-10-13] MEDS ORDERED: NACHLORIDE 0.45% 1,000 ML with NA BICARB 8.4% 100 MEQ IV SCH ×2 (13:00)
[2018-10-13] MEDS ORDERED: DOXYCYCLINE 100 MG in NA CHLORIDE 0.9% 100 ML IVPB SCH (13:00)
[2018-10-13] MEDS ORDERED: CEFTRIAXONE/SWI 1gm 1 GM/10 ML SYR IV SCH (13:00)
[2018-10-13] MEDS: NOREPINEPHRINE 4 MG in D5W 250 ML IV PRN (14:41)
--- NOTE | 2018-10-13 14:46 | CON ---
Date of Consultation: 10/13/2018 Reason For Consultation: Acidosis, elevated BUN and creatinine, fluid management. History Of Present Illness: This is a pleasant 73-year-old gentleman with significant past medical h istory of diabetes complicated with neuropathy, hypertension, hyperlipidemia, obstructive sleep apnea , coronary artery disease without any congestive heart failure with echocardiogram has been done in t his admission with ejection fraction above 60%. The patient was in his regular state of health. Acc ording to him for the last few days his legs swelled and he started having swelling on the upper extr emity. Patient took ibuprofen almost 400 daily for the last few days. Patient denied any IV contras t. Patient went to his primary care in the [place], found to have the swelling on the upper extremity, re vipin to the hospital. In the hospital, primary workup showed elevated BUN and creatinine, low blood p ressure. The patient was admitted with septic shock. Reviewing the record for the patient, the ling ent on admission yesterday creatinine 3.1, today 2.1 trending down, back in 2016 creatinine 1.2. GFR yesterday 19, today 29, before back in 2016 was 57. The patient on home medication as metformin, ot herwise no other . The patient had low blood pressure, being on Levophed. Past Medical History: Coronary artery disease CHF, hyperlipidemia, diabetes complicated w ith neuropathy. Allergies: NO KNOWN DRUGS ALLERGY. Social History: Ex-smoker. Denied alcohol. Denied drugs abuse. Family History: Positive for hypertension. Past Surgical History: ICD placement. Review of Systems: Head and Neck: No red eye. No ear pain. GI: No nausea, no vomiting. : No polyuria, no dysuria, no hematuria. D[employer] Operator: Not applicable. Respiratory: Has shortness of breath. Cardiovascular: Has leg swelling, has orthopnea. Musculoskeletal: No joint pain. Has upper extremity pain. Endocrine: No polydipsia. Skin: No rash. Neuro: Has neuropathy. Cardiovascular: Has orthopnea. Physical Examination: Vital Signs: When I saw the patient, blood pressure 109/67, pulse of 88. Chest: Clear to auscultation. Heart: S1, S2. Regular. Abdomen: Soft, nontender. Extremity: Significant swelling with blister on the upper extremity. Trace edema on the lower extre mity with severe venous stasis change. Laboratory Data: Today, sodium 136, potassium 4, bicarb 19, BUN 65, creatinine 2.1, calcium 7.1, lac tic acid 2.2, magnesium 1.8, phosphorus 3.3, troponin 1.7, albumin 1.7 Yesterday Lab Data: Creatinine 3.1, potassium 5.1. Bicarb of 17. Assessment And Plan: Acute kidney injury on chronic kidney disease secondary to prerenal poor perfus ion, ATN superimposed with metformin use/toxic ATN secondary to sepsis, nonoliguric, marginal hyperka lemia, mild acidosis. 1.I am going to go ahead and change IV fluids to half-normal with one and half amp. We will send fo r the workup given the presence of the blister, autoimmune disease need to be ruled out even though t he urinalysis did not show any activity on the UA. We will send for full serology. I agree with cur rent antibiotics. 2.Hold all nonsteroidals. Hold metformin and hold all blood pressure medication. 3.Hypertension, currently hypotension with the presence of acute kidney injury. Hold all blood pres sure medication. 4.Chronic kidney disease with acute kidney injury as above. 5.Sepsis secondary to cellulitis with possible burn, agree with current antibiotic. 6.Possible burn. I agree with hydration. 7.Acidosis secondary to renal failure/metformin. We will start the patient on bicarb drip. 8.Diabetes as by primary. 9.Hyperkalemia, resolved. Current Medications: The patient on include Zosyn 2.25 q.8, vancomycin, albuterol, albumin, D5 with 2 amp of bicarb, fentanyl. Thank you, Dr. Calhoun for allowing us to participate in the care of your patient. SHANTANU/EULALIO Voice ID: [id number] Report ID: [id number]
--- NOTE | 2018-10-13 16:41 | RAD REPORT ---
EXAM DESCRIPTION: US - Renal Ultrasound-Complete - 10/13/2018 4:22 pm CLINICAL HISTORY: UBALDO Flank pain COMPARISON: <Comparisons> FINDINGS: Both kidneys are normal in size, shape and echotexture. Bilateral benign renal cysts noted . The right kidney measures 11.5 x 5.7 x 4.7 cm. No hydronephrosis, focal mass or perinephric fluid. The left kidney measures 14.6 x 7.7 x 5.5 cm. No hydronephrosis, focal mass or perinephric fluid. The urinary bladder is incompletely distended without gross abnormality seen. IMPRESSION: Benign bilateral renal cysts, otherwise negative study.
--- NOTE | 2018-10-13 17:19 | P.DS ---
Admission Date: 10/12/18 Discharge Date: 10/13/18 Primary Care Provider: [facility] Reason for Admission: BL UE swelling and SOB - Problems (1) Sepsis Current Visit: Yes Status: Acute Qualifiers: Sepsis type: sepsis due to unspecified organism Qualified Code(s): A41.9 - Sepsis, unspecified organism (2) Cellulitis of upper extremity Current Visit: Yes Status: Acute Qualifiers: Laterality: unspecified laterality Qualified Code(s): L03.119 - Cellulitis of unspecified part of limb (3) Respiratory distress Current Visit: Yes Status: Acute (4) UBALDO (acute kidney injury) Current Visit: Yes Status: Acute (5) CAD (coronary artery disease) Current Visit: Yes Status: Acute Qualifiers: Coronary Disease-Associated Artery/Lesion type: [place] artery [place] vs. transplanted heart: [place] heart Associated angina: with stable angina Qualified Code(s): I25.118 - Atherosclerotic heart disease of [place] coronary artery with other forms of angina pectoris (6) Hypertension Current Visit: Yes Status: Chronic Qualifiers: Hypertension type: essential hypertension Qualified Code(s): I10 - Essential (primary) hypertension (7) Diabetes Current Visit: Yes Status: Chronic Qualifiers: Diabetes mellitus type: type 2 Diabetes mellitus retail assistant insulin use: without retirement use Diabetes mellitus complication status: without complication Qualified Code(s): E11.9 - Type 2 diabetes mellitus without complications Brief History of Present Illness: The 73-year-old male with significant past medical history of diabetes, hypertension, hyperlipidemia, MARIZA who presented to the ED complaining of having bilateral upper extremity swelling. Patient also complained of having some shortness of breath. Patient stated that his swelling had started on Thursday night and then he started getting short of breath on Thursday night. Patient was not getting better and thus he got worse progressively and thus decided to come to the ER. Patient stated that about a week ago he was scratched by his cat but no other trauma was noted. Patient was sent over to the [facility] from which he was sent over here for further workup. Patient denies having any fever chills nausea vomiting abdominal pain chest pain or any other associated symptoms. No sick contacts. No open wounds prior to this episode. In the ER patient had extensive workup done, workup was consistent with sepsis and patient also had respiratory distress and thus the decision was made to admit the patient to the ICU for further workup and treatment. Hospital Course: Overall pt remained stable. Pt was admitted to the hospital for septic shock and respiratory Distress. Septic Shock was most likely 2.2 to BL UE cellulitis 2.2 to Vibrious Valnificus. Pt was given IV vanc, zosyn and Switched to Doxycycline and Rocephin. Pt was also started on Levaphed. Pt also was found to have UBALDO. Nephrology was consulted. pt was started on IV fluids. Pt was improving from the sepsis and UBALDO stand point. However due to the extent of the bullae and involvement of the cellulitis it was recc for patient to go the [facility] for Sterile room and possible vera unit for sabra treatment. Pt was refereed to [facility] for continuity of care and was accepted and transferred Vital Signs/Physical Exam: Temp Pulse Resp BP Pulse Ox 97.5 F 77 34 H 108/62 97 10/13/18 12:17 10/13/18 16:45 10/13/18 16:45 10/13/18 16:45 10/13/18 16:45 General: Alert, In no apparent distress HEENT: Atraumatic, PERRLA, EOMI Neck: Supple, JVD not distended Respiratory: Clear to auscultation bilaterally, Normal air movement Cardiovascular: Regular rate/rhythm, Normal S1 S2 Gastrointestinal: Normal bowel sounds, No tenderness Musculoskeletal: Erythema, Tenderness, Warmth Integumentary: No rashes Neurological: Normal speech, Normal tone, Normal affect Lymphatics: No axilla or inguinal lymphadenopathy Laboratory Data at Discharge: WBC 7.9 K/uL (4.3-10.9) D 10/13/18 04:30 Hgb 11.7 g/dL (13.6-17.9) L D 10/13/18 04:30 Hct 35.4 % (39.6-49.0) L D 10/13/18 04:30 Plt Count 209 K/uL (152-406) D 10/13/18 04:30 PT 16.1 SECONDS (9.5-12.5) H 10/12/18 13:00 INR 1.38 10/12/18 13:00 Sodium 136 mmol/L (136-145) 10/13/18 04:30 Potassium 4.0 mmol/L (3.5-5.1) 10/13/18 04:30 BUN 65 mg/dL (7-18) H 10/13/18 04:30 Creatinine 2.19 mg/dL (0.55-1.3) H 10/13/18 04:30 Glucose 227 mg/dL (74-106) H 10/13/18 04:30 Phosphorus 3.3 mg/dL (2.5-4.9) 10/13/18 04:30 Magnesium 1.8 mg/dL (1.8-2.4) 10/13/18 04:30 Total Bilirubin 0.5 mg/dL (0.2-1.0) 10/13/18 04:30 AST 47 U/L (15-37) H 10/13/18 04:30 ALT 31 U/L (12-78) 10/13/18 04:30 Alkaline Phosphatase 72 U/L (45-117) 10/13/18 04:30 Troponin I 1.78 ng/mL (0.0-0.045) H* 10/13/18 04:30 Lipase 40 U/L (73-393) L 10/12/18 13:00 Home Medications: Allopurinol 100 mg PO BID PRN 10/12/18 Alogliptin Benzoate [Alogliptin] 25 mg PO DAILY 10/12/18 Amlodipine [Norvasc] 5 mg PO DAILY 10/12/18 Aspirin [Aspir-Low] 81 mg PO DAILY 10/12/18 Atorvastatin Calcium [Lipitor] 40 mg PO BEDTIME 10/12/18 Metformin HCl 1,000 mg PO BID 10/12/18 Metoprolol Succinate [Toprol Xl] 100 mg PO DAILY 10/12/18
--- NOTE | 2018-10-13 17:30 | CON ---
History Of Present Illness: Patient is a 73-year-old male in ICU. Denies any headache, nausea, vomi ting, chest pain, abdominal pain, constipation, or diarrhea. Patient has significant history of diab etes mellitus, hypertension, hyperlipidemia, osteoarthritis, came in with cellulitis of upper extremi ty and sepsis, and acute renal injury. 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 Denies any other problems. Past Medical History: As per HPI. Social History: Nonsmoker. Nondrinker. Family History: Noncontributory. Medication: Rocephin and doxycycline. See MARs for other medication. Allergies: IODINE. Review of Systems: A 10-point review was performed. Physical Examination: General: This is a 73-year-old male, lying in bed, not in any acute cardiopulmonary distress. Vital signs: Temperature 97.5, pulse 92, respirations 18, blood pressure 99/61. HEENT: Unremarkable. Neck: Supple. Lungs: Basal crackles. Heart: S1, S2. Regular. Abdomen: Soft, nontender. Bowel sounds present. Extremities: 3+ edema. Blisters noted on the upper extremity, left more than right. Laboratory Data: Shows WBC 7.9, down from 12,000; hemoglobin 11.7; platelets are 209. Chemistry marlene ws sodium 136, potassium 4, chloride 106, bicarb 19, BUN 65, creatinine 2.19, glucose 227. Troponin is 1.78. Assessment And Plan: Bilateral upper extremity cellulitis, sepsis. Leukocytosis is improving. Cont inue antibiotic and supportive care. Blisters were opened up by using blade #10 under sterile condit ion. Continue supportive care. Keep arms elevated. NF/MODL Voice ID: [id number] Report ID: [id number]
[2018-10-14] MEDS ORDERED: VANCOMYCIN 1.75 GM in NA CHLORIDE 0.9% 500 ML IVPB SCH ×2 (09:00→21:00)
== END 2018-10-13 17:00 | DRG 871 ==
LOC: ER 12:36 → ERHOLD 15:35 → 3RD-ICU 17:53
PROVIDERS: ADMIT Family Medicine; ATTEND Family Medicine
DX: A41.9 Sepsis, unspecified organism (principal); R65.21 Severe sepsis with septic shock; L03.114 Cellulitis of left upper limb; N17.9 Acute kidney failure, unspecified; L03.113 Cellulitis of right upper limb; E87.2 Acidosis; R06.03 Acute respiratory distress; Z95.1 Presence of aortocoronary bypass graft; Z95.810 Presence of automatic (implantable) cardiac defibrillator; E11.9 Type 2 diabetes mellitus without complications; R23.8 Other skin changes; I10 Essential (primary) hypertension; G47.33 Obstructive sleep apnea (adult) (pediatric); I25.119 Atherosclerotic heart disease of native coronary artery with unspecified angina pectoris; E78.5 Hyperlipidemia, unspecified; B96.82 Vibrio vulnificus as the cause of diseases classified elsewhere
CPT/HCPCS: 36415; 71045; 76770; 80048; 80053; 80076; 81003; 82550; 82805; 82962; 83605; 83690; 83735; 83880; 84100; 84145; 84439; 84443; 84484; 85025; 85610; 86038; 87040; 87070; 87077; 87086; 87088; 87186; 87205; 87804; 93005; 93306; 93930; 93970; 94660; 94760; 96361; 96365; 96366; 96367; 96375; 99285; J0456; J0696; J1650; J2930; J3010; J3370; J3475; J7030; J7060; P9047

== ENCOUNTER 2022-12-03 16:28 | Inpatient (IN) | payer OTHER ==
--- OUTSIDE RECORDS SUMMARY | 2022-12-03 16:30 | XMS REPORT | Continuity of Care Document ---
:1945 Author Organization [facility] t Address [address] [place] [address] Care Team Providers Name Role Phone EMA DUKES Attending Clinician Unavailable Problems This patient has no known problems. Allergies, Adverse Reactions, Alerts This patient has no known allergies or adverse reactions. Medications This patient has no known medications. Procedures This patient has no known procedures. Encounters Start End Encounter Admission Attending Care Care Encounter Source Date/Time Date/Time Type Type Clinicians Facility Department ID 2022-08-20 2022-08-20 Outpatient DEIDRE DUKES [facility] [id number] [place] 09:47:00 09:47:00 EMA [id number] [facility] 2022-04-10 2022-04-10 Outpatient DEIDRE Dukes [facility] [id number] [place] 11:27:00 11:27:00 Ema [id number] [facility] Results This patient has no known results.
--- NOTE | 2022-12-03 17:35 | RAD REPORT ---
EXAM DESCRIPTION: CT - Ct Stroke Brain Wo Cont - 12/03/2022 5:26 pm CLINICAL HISTORY: Slurred speech COMPARISON: 2016 TECHNIQUE: Computed axial tomography of the head was obtained. All CT scans are performed using dose optimization technique as appropriate and may include automated exposure control or mA/KV adjustment according to patient size. FINDINGS: An intracranial bleed is not seen . The ventricles are normal in caliber. No extra-axial fluid collection is noted. 5.5 centimeter low-density area within the left cerebrum consistent with gliosis probably secondary t o old infarct. 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 Fluid within the sinuses/ mastoids is not seen. IMPRESSION: No acute intracranial abnormality is seen. If patient's symptoms persist MRI of the bra in would be recommended Dr Angulo of the emergency room was notified at 5:30 p.m. on December 03, 2022
[2022-12-03 17:48] LABS: Absolute Lymphocytes (CBC) 1.1 K/uL (0.7-4.9); Lymphocytes % 22.5 % (15.3-44.8); MCV 97.1 fL (80-100); MPV 8.4 fL (7.6-11.3); Platelets 130 thou/uL (152-406); RBC Red Blood Cell Count 3.51 M/uL (4.33-5.43)
[2022-12-03 17:59] LABS: Protime INR 1.25
--- NOTE | 2022-12-03 18:09 | RAD REPORT ---
EXAM DESCRIPTION: RAD - STROKE CXR 1 VIEW - 12/03/2022 6:00 pm CLINICAL HISTORY: r/o stroke COMPARISON: Chest Single View dated 10/13/2018 FINDINGS: Left subclavian approach pacemaker/ ICD. Cardiomegaly. The lungs are clear. No edema or co nsolidation. No fractures are identified. Visualized upper abdomen is unremarkable. IMPRESSION: No acute cardiopulmonary disease.
[2022-12-03 18:16] LABS: Albumin 3.6 g/dL (3.4-5.0); Bilirubin Direct 0.1 mg/dL (0-0.2); Bilirubin Indirect, Calculated 0.3 mg/dL (0.2-0.8); Bilirubin Total 0.4 mg/dL (0.2-1.0); Magnesium 2.4 mg/dL (1.6-2.4); Potassium 4.2 mEq/L (3.5-5.1); Troponin High Sensitivity 28.1 pg/mL (<58.9)
--- NOTE | 2022-12-03 18:27 | ER ---
Nurse's Notes [facility] Name: Je Ch Age: 77 yrs Sex: Male : 1945 Arrival Date: 12/03/2022 Time: 16:28 Bed 16 Private MD: Diagnosis: Acute kidney failure, unspecified;Altered mental status, unspecified;Facial droop Presentation: 12/03 17:06 Chief complaint: EMS states: the [facility] called them as the patient wasn't acting me1 like himself and he has slurred speech and R facial droop. Patient does have a hx of CVA. Coronavirus screen: Vaccine status: Patient reports receiving the 2nd dose of the covid vaccine. Ebola Screen: No symptoms or risks identified at this time. Initial Sepsis Screen: Does the patient meet any 2 criteria? No. Patient's initial sepsis screen is negative. Does the patient have a suspected source of infection? No. Patient's initial sepsis screen is negative. Risk Assessment: Do you want to hurt yourself or someone else? Patient reports no desire to harm self or others. Onset of symptoms is unknown. 17:06 Method Of Arrival: EMS: [place] [id number] 17:06 Acuity: GENEVIEVE 3 me1 Triage Assessment: 17:08 General: Appears comfortable, well groomed, well developed, well nourished, Behavior is me1 calm, cooperative, appropriate for age, Reports dizziness and "feeling off balance" for about a week. Pain: Denies pain. Neuro: Level of Consciousness is awake, alert, obeys commands, Oriented to person, place, time, situation, Appropriate for age Prn Physical Therapist are equal bilaterally Moves all extremities. Speech is slurred, Facial droop on right, Facial symmetry: tongue is midline, Pupils are PERRLA. Cardiovascular: Capillary refill < 3 seconds Patient's skin is warm and dry. Respiratory: Airway is patent Respiratory effort is even, unlabored, Respiratory pattern is regular, symmetrical. Historical: - Allergies: 17:08 Iodinated Contrast Media - IV Dye; me1 - PMHx: 17:08 Diabetes - NIDDM; Hypertension; Myocardial infarction; Pacemaker; me1 - Immunization history:: Adult Immunizations unknown. - Social history:: Smoking status: Patient reports the use of cigarette tobacco products, smokes one-half pack cigarettes per day. - Family history:: not pertinent. - Hospitalizations: : No recent hospitalization is reported. Screenin:12 [facility] ED Fall Risk Assessment (Adult) History of falling in the last 3 months, me1 including since admission No falls in past 3 months (0 pts) Confusion or Disorientation No (0 pts) Intoxicated or Sedated No (0 pts) Impaired Gait Yes (1 pt) Mobility Assist Device Used Yes (1 pt) Altered Elimination No (0 pt) Score/Fall Risk Level 0 - 2 = Low Risk. Abuse screen: Denies threats or abuse. Nutritional screening: No deficits noted. Tuberculosis screening: No symptoms or risk factors identified. Assessment: 17:12 General: see triage assesssment. me1 19:00 Reassessment: Patient appears in no apparent distress at this time. Patient is alert, me1 oriented x 3, equal unlabored respirations, skin warm/dry/pink. Patient denies pain at this time. 21:00 Reassessment: Patient appears in no apparent distress at this time. Patient is alert, me1 oriented x 3, equal unlabored respirations, skin warm/dry/pink. Patient denies pain at this time. 22:46 Reassessment: Patient appears in no apparent distress at this time. Patient is alert, me1 oriented x 3, equal unlabored respirations, skin warm/dry/pink. Patient denies pain at this time. Vital Signs: 17:06 BP 110 / 48; Pulse 70; Resp 18; Temp 97.2(O); Pulse Ox 100% on R/A; Weight 80.74 kg; me1 Height 5 ft. 8 in. ; Pain 0/10; 18:00 BP 105 / 59; Pulse 72; Resp 16; Pulse Ox 100% on R/A; me1 19:00 BP 105 / 64; Pulse 70; Resp 15; Pulse Ox 100% on R/A; me1 20:00 BP 110 / 62; Pulse 70; Resp 15; Pulse Ox 100% ; me1 21:00 BP 103 / 63; Pulse 75; Resp 14; Pulse Ox 100% on R/A; me1 22:00 BP 102 / 66; Pulse 72; Resp 14; Pulse Ox 100% ; me1 22:30 BP 103 / 67; Pulse 70; Resp 14; Pulse Ox 99% on R/A; me1 23:10 BP 92 / 63; Pulse 71; Resp 16; Pulse Ox 99% on R/A; me1 17:06 Body Mass Index 27.06 (80.74 kg, 172.72 cm) me1 17:06 Pain Scale: Adult me1 NIH Stroke Scale Scores: 16:57 NIHSS Score: 3 golf tournament consultant Course: 16:52 Patient arrived in ED. rn 16:52 Braydon Angulo MD is Attending Physician. rn 17:06 Caitie Wang, STIVEN is Primary Nurse. me1 17:08 Triage completed. me1 17:08 Arm band placed on Patient placed in an exam room. me1 17:12 Patient has correct armband on for positive identification. Bed in low position. Call me1 light in reach. Side rails up X2. Provided Education on: POC. Verbalized understanding.. 17:12 No provider procedures requiring assistance completed. Maintain EMS IV. Dressing me1 intact. Good blood return noted. Site clean \\T\\ dry. Gauge \\T\\ site: [address] 17[address]26 [address] Stroke Brain Wo Cont In Process Unspecified. EDMS 17:37 Basic Metabolic Panel Sent. me1 17:37 CBC with Diff Sent. me1 17:37 Hepatic Function Sent. me1 17:37 High Sensitivity Troponin Sent. me1 17:37 Magnesium Sent. me1 17:37 Protime (+inr) Sent. me1 17:37 Ptt, Activated Sent. me1 17:56 STROKE CXR 1 VIEW Sent. me1 18:02 STROKE CXR 1 VIEW In Process Unspecified. EDMS 18:25 Lex Gleason MD is Hospitalizing Provider. rn Administered Medications: 18:54 Drug: NS 0.9% IV 500 ml Route: IV; Rate: bolus; Site: right antecubital; me1 19:50 Follow up: IV Status: Completed infusion me1 Medication: 17:12 VIS not applicable for this client. wv1 Point of Care Testing: Blood Glucose: 17:59 Blood Glucose: 132 mg/dL; wv1 Ranges: Outcome: 18:26 Decision to Hospitalize by Provider. rn 23:09 Admitted to Med/surg accompanied by tech, via wheelchair, room 402, Report called to me Tasha García RN 23:09 Condition: stable 12/04 00:00 Patient left the ED. wv1 NIH Stroke Scale - NIH Stroke Score Date: 12/03/2022 Time: 16:57 Total Score = 3 10. Dysarthria (speech clarity - read or repeat words) - 1(Mild to Moderate) 11. Extinction and Inattention (visual/tactile/auditory/spatial/personal) - 0(No abnormality) 1a. Level of Consciousness (LOC) - 0(Alert) 1b. Level of Consciousness (LOC) (Month \\T\\ Age) - 0(Both) 1c. LOC Commands (Open \\T\\ Closes Eyes/Boring Machine Set Up Operator) - 0(Both) 2. Best Gaze (Lateral Gaze Paresis) - 0(Normal) 3. Visual Field Loss - 0(No visual loss) 4. Facial Palsy - 2(Partial paralysis) 5a. Left Arm: Motor (10-second hold) - 0(No drift) 5b. Right Arm: Motor (10-second hold) - 0(No drift) 6a. Left Leg: Motor (5-second hold - always test supine) - 0(No drift) 6b. Right Leg: Motor (5-second hold - always test supine) - 0(No drift) 7. Limb Ataxia (finger/nose \\T\\ heel/oconnor - test with eyes open) - 0(Absent) 8. Sensory Loss (pinprick arms/legs/face) - 0(Normal) 9. Best Language: Aphasia (description/naming/reading) - 0(No aphasia) Initials: rn Signatures: Dispatcher [employer] Braydon Ortiz MD MD rn Eddleman, Michelle, RN RN me1 Corrections: (The following items were deleted from the chart) 12/03 22:46 22:45 Reassessment: Patient appears in no apparent distress at this time. me1 Patient is alert, oriented x 3, equal unlabored respirations, skin warm/dry/pink. Patient denies pain at this time. me1
--- NOTE | 2022-12-03 18:27 | EDPHYS ---
Physician Documentation [facility] Name: Je Ch Age: 77 yrs Sex: Male : 1945 Arrival Date: 12/03/2022 Time: 16:28 Bed 16 Private MD: ED Physician Braydon Angulo HPI: 12/03 16:54 This 77 yrs old Male presents to ER via Unassigned with complaints of Slurred rn speech, facial droop. 16:54 The patient presents to the emergency department with a speech or higher order brain rn function problem. Onset: The symptoms/episode began/occurred 1 week(s) ago. Context: occurred at home, occurred while the patient was. Associated signs and symptoms: Pertinent negatives: fever, headache, neck stiffness, seizure, syncope, double vision, visual field changes, loss of vision, weakness. Severity of symptoms: At their worst the symptoms were moderate in the emergency department the symptoms are unchanged. Current symptoms: dysphasia. The patient has not experienced similar symptoms in the past. The patient has been recently seen by a physician:. Patient sent from [facility] for stroke evaluation. Patient reports not feeling right for the last week with dizziness and feeling like he is going to fall. Was noted to have a facial droop and not acting normal per his physician. No head injury. No fall. No changes in medication. Has had a stroke before but thinks only takes aspirin. Symptoms started about 1 week ago progressively worsening. Historical: - Allergies: 17:08 Iodinated Contrast Media - IV Dye; me1 - PMHx: 17:08 Diabetes - NIDDM; Hypertension; Myocardial infarction; Pacemaker; me1 - Immunization history:: Adult Immunizations unknown. - Social history:: Smoking status: Patient reports the use of cigarette tobacco products, smokes one-half pack cigarettes per day. - Family history:: not pertinent. - Hospitalizations: : No recent hospitalization is reported. ROS: 16:54 Constitutional: Negative for fever, chills, and weight loss, Eyes: Negative for injury, rn pain, redness, and discharge, Neck: Negative for injury, pain, and swelling, Cardiovascular: Negative for chest pain, palpitations, and edema, Respiratory: Negative for shortness of breath, cough, wheezing, and pleuritic chest pain, Abdomen/GI: Negative for abdominal pain, nausea, vomiting, diarrhea, and constipation, Back: Negative for injury and pain, MS/Extremity: Negative for injury and deformity, Skin: Negative for injury, rash, and discoloration, Neuro: Positive for dizziness and facial droop Exam: 16:54 Constitutional: This is a well developed, well nourished patient who is awake, alert, rn and in no acute distress. Head/Face: Normocephalic, atraumatic. Eyes: Pupils equal round and reactive to light, extra-ocular motions intact. Cardiovascular: Regular rate and rhythm. No pulse deficits. Respiratory: No increased work of breathing, no retractions or nasal flaring. Abdomen/GI: Soft, non-tender MS/ Extremity: Pulses equal, no cyanosis. Neurovascular intact. Full, normal range of motion. Equal circumference. Neuro: Awake and alert, GCS 15, oriented to person, place, time, and situation. Right lower facial droop with forehead sparing. Motor strength 4/5 in all extremities. Sensory grossly intact. Positive slurred speech 19:46 ECG was reviewed by the Attending Physician. rn Vital Signs: 17:06 BP 110 / 48; Pulse 70; Resp 18; Temp 97.2(O); Pulse Ox 100% on R/A; Weight 80.74 kg; me1 Height 5 ft. 8 in. ; Pain 0/10; 18:00 BP 105 / 59; Pulse 72; Resp 16; Pulse Ox 100% on R/A; me1 19:00 BP 105 / 64; Pulse 70; Resp 15; Pulse Ox 100% on R/A; me1 20:00 BP 110 / 62; Pulse 70; Resp 15; Pulse Ox 100% ; me1 21:00 BP 103 / 63; Pulse 75; Resp 14; Pulse Ox 100% on R/A; me1 22:00 BP 102 / 66; Pulse 72; Resp 14; Pulse Ox 100% ; me1 22:30 BP 103 / 67; Pulse 70; Resp 14; Pulse Ox 99% on R/A; me1 23:10 BP 92 / 63; Pulse 71; Resp 16; Pulse Ox 99% on R/A; me1 17:06 Body Mass Index 27.06 (80.74 kg, 172.72 cm) ca1 17:06 Pain Scale: Adult [facility] NIH Stroke Scale Scores: 16:57 NIHSS Score: 3 rn MDM: 16:52 Patient medically screened. rn 17:30 Discussion of test interpretation with radiology: I had a discussion with radiology practitioner assistant regarding a test interpretation. CT head without discussed with radiologist Dr. Lakhani, states no acute findings but does see 2 old infarcts of the left cerebrum and also the cerebellum but look old. 18:25 Data reviewed: vital signs, nurses notes, lab test result(s), EKG, radiologic studies, rn CT scan, and as a result, I will admit patient. Consideration of Admission/Observation Patient was admitted/placed on observation. Escalation of care including admission/observation considered. Management of patient was discussed with the following: Hospitalist: . Counseling: I had a detailed discussion with the patient and/or guardian regarding the historical points, exam findings, and any diagnostic results supporting the discharge/admit diagnosis, lab results, radiology results, the need for further work-up and treatment in the hospital. Response to treatment: the patient's symptoms have mildly improved after treatment, and as a result, I will admit patient. 12/03 16:53 Order name: Basic Metabolic Panel; Complete Time: 18:21 12/03 16:53 Order name: CBC with Diff 12/03 16:53 Order name: Hepatic Function; Complete Time: 18:21 12/03 16:53 Order name: High Sensitivity Troponin; Complete Time: 18:21 12/03 16:53 Order name: Magnesium; Complete Time: 18:21 12/03 16:53 Order name: Protime (+inr); Complete Time: 18:21 12/03 16:53 Order name: Ptt, Activated; Complete Time: 18:21 12/03 18:10 Order name: Glucose, Ancillary Testing; Complete Time: 18:21 [facility] 12/03 19:25 Order name: CBC Smear Scan [facility] 12/03 16:59 Order name: Ct Stroke Brain Wo Cont; Complete Time: 18:21 [facility] 12/03 16:59 Order name: STROKE CXR 1 VIEW; Complete Time: 18:21 [facility] 12/03 16:53 Order name: EKG; Complete Time: 17:05 12/03 17:00 Order name: EKG Electrocardiogram; Complete Time: 17:49 [facility] 12/03 16:53 Order name: Accucheck; Complete Time: 17:58 12/03 16:53 Order name: Cardiac monitoring; Complete Time: 17:37 rn 12/03 16:53 Order name: EKG - Nurse/Tech; Complete Time: 17:49 rn 12/03 16:53 Order name: IV Saline Lock; Complete Time: 17:37 rn 12/03 16:53 Order name: Labs collected and sent; Complete Time: 17:37 rn 12/03 16:53 Order name: NPO; Complete Time: 17:37 rn 12/03 16:53 Order name: O2 Per Protocol; Complete Time: 17:37 rn 12/03 16:53 Order name: O2 Sat Monitoring; Complete Time: 17:37 rn 12/03 16:53 Order name: Stroke Swallow Screen; Complete Time: 20:59 rn EC:46 Rate is 72 beats/min. Rhythm is regular. QRS interval is prolonged at 192 msec. No Q rn waves. T waves are Normal. No ST changes noted. Clinical impression: Paced rhythm. Interpreted by me. Reviewed by me. Administered Medications: 18:54 Drug: NS 0.9% IV 500 ml Route: IV; Rate: bolus; Site: right antecubital; me1 19:50 Follow up: IV Status: Completed infusion me1 Point of Care Testing: Blood Glucose: 17:59 Blood Glucose: 132 mg/dL; me1 Ranges: Critical Glucose Levels:Adult <50 mg/dl or >400 mg/dl <40 mg/dl or >180 mg/dl Disposition Summary: 12/03/22 18:26 Hospitalization Ordered Hospitalization Status: Inpatient Admission rn Provider: Lex Gleason rn [facility] rn Condition: Stable rn Problem: new rn Symptoms: are unchanged rn Bed/Room Type: Standard rn Room Assignment: 402(12/03/22 22:18) eb1 Diagnosis - Acute kidney failure, unspecified rn - Altered mental status, unspecified rn - Facial droop rn Forms: - Medication Reconciliation Form rn - SBAR form rn - Leadership Thank You Letter rn NIH Stroke Scale - NIH Stroke Score Date: 12/03/2022 Time: 16:57 Total Score = 3 10. Dysarthria (speech clarity - read or repeat words) - 1(Mild to Moderate) 11. Extinction and Inattention (visual/tactile/auditory/spatial/personal) - 0(No abnormality) 1a. Level of Consciousness (LOC) - 0(Alert) 1b. Level of Consciousness (LOC) (Month \T\ Age) - 0(Both) 1c. LOC Commands (Open \T\ Closes Eyes/Central Supply Supervisor) - 0(Both) 2. Best Gaze (Lateral Gaze Paresis) - 0(Normal) 3. Visual Field Loss - 0(No visual loss) 4. Facial Palsy - 2(Partial paralysis) 5a. Left Arm: Motor (10-second hold) - 0(No drift) 5b. Right Arm: Motor (10-second hold) - 0(No drift) 6a. Left Leg: Motor (5-second hold - always test supine) - 0(No drift) 6b. Right Leg: Motor (5-second hold - always test supine) - 0(No drift) 7. Limb Ataxia (finger/nose \T\ heel/oconnor - test with eyes open) - 0(Absent) 8. Sensory Loss (pinprick arms/legs/face) - 0(Normal) 9. Best Language: Aphasia (description/naming/reading) - 0(No aphasia) Initials: rn Signatures: Dispatcher [employer] EDMS rBaydon Angulo MD MD rn Basinger, Emily, RN RN eb1 Caitie Wang RN RN me1 Corrections: (The following items were deleted from the chart) 17:11 17:05 CT-STROKE BRAIN W/O CONTRAST+CT.RAD.BRZ ordered. EDMS EDMS 17:11 17:05 Head Angio+CT.RAD.BRZ ordered. EDMS EDMS 17:11 17:06 Neck Angio+CT.RAD.BRZ ordered. EDMS EDMS 17:18 17:05 Chest Single View+RAD.RAD.BRZ ordered. EDMS EDMS 17:27 16:59 Head angio ordered. EDMS EDMS 17:27 16:59 Neck Angio ordered. EDMS EDMS 22:18 18:26 rn eb1
[2022-12-03] MEDS ORDERED: NA CHLORIDE 0.9% 500 ML ONE (19:01)
[2022-12-03 19:24] LABS: Blood Morphology Comment NOT SEEN (NOT SEEN); Platelet Estimate DECR; White Blood Cell Scan OK (OK)
--- NOTE | 2022-12-03 21:31 | P.HP ---
Certification for Inpatient Patient admitted to: Inpatient With expected LOS: <2 Midnights Patient will require the following post-hospital care: None Practitioner: I am a practitioner with admitting privileges, knowledge of patient current condition, hospital course, and medical plan of care. Services: Services provided to patient in accordance with Admission requirements found in Title 42 Section 412.3 of the Code of Federal Regulations Patient History Date of Service: 12/03/22 Reason for admission: CVA evaluation History of Present Illness: 77 yrs old Male with h/o Diabetes - NIDDM; Hypertension; Myocardial infarction; Pacemaker; presents to ER via Unassigned with complaints of Slurred speech, facial droop. Onset: The symptoms/episode began/occurred 1 week(s) ago. occurred at home, occurred while the patient was. Denies fever, headache, neck stiffness, seizure, syncope, double vision, visual field changes, loss of vision, weakness. The symptoms were moderate in the emergency department the symptoms are unchanged. Current symptoms: dysphasia. The patient has not experienced similar symptoms in the past. The patient has not experienced similar symptoms in the past. Patient sent from [place] clinic for stroke evaluation. Patient reports not feeling right for the last week with dizziness and feeling like he is going to fall. Was noted to have a facial droop and not acting normal per his physician. No head injury. No fall. No changes in medication. Has had a stroke before but thinks only takes aspirin. Symptoms sta rted about 1 week ago progressively worsening.Vital Signs: 17:06 BP 110 / 48; Pulse 70; Resp 18; Temp 97.2(O); Pulse Ox 100% on R/A. NIH Stroke Scale Scores: NIHSS Score: [address] Brain -No acute intracranial abnormality is seen. If patient's symptoms persist MRI of the brain. Chest X-ray shows No acute cardiopulmonary disease. Plan to admit for CVA eval, weakness, acute renal failure. Allergies Iodinated Contrast Media [Iodinated Contrast- Oral and IV Dye] Allergy (Verified 10/12/18 20:59) Itching/Hives/Rash Home Medications: Alogliptin Benzoate [Alogliptin] 25 mg PO DAILY 10/12/18 Amlodipine [Norvasc] 5 mg PO DAILY 10/12/18 Aspirin [Aspir-Low] 81 mg PO DAILY 10/12/18 Atorvastatin Calcium [Lipitor] 40 mg PO BEDTIME 10/12/18 Metformin HCl 1,000 mg PO BID 10/12/18 Metoprolol Succinate [Toprol Xl] 100 mg PO DAILY 10/12/18 allopurinoL [Allopurinol] 100 mg PO BID PRN 10/12/18 - Past Medical/Surgical History Diabetic: Yes -: HTN -: NIDDM -: CAD -: CVA -: TIA -: CKD -: cardiac stents -: pacemaker/defibrillator - Family History Father -: Cancer Notes: of throat cancer Mother -: Heart disease Notes: mother from [place] - Social History Smoking Status: Current every day smoker (per day) Alcohol use: Yes CD- Drugs: No Caffeine use: Yes Place of Residence: Home Review of Systems 10-point ROS is otherwise unremarkable Physical Examination - Physical Exam General: Alert, In no apparent distress, Oriented x3 HEENT: PERRLA, Other (slurred speech) Neck: Supple Respiratory: Clear to auscultation bilaterally Cardiovascular: No edema, Other (paced ), Irregular heart rate/rhythm Capillary refill: <2 Seconds Gastrointestinal: Normal bowel sounds, Soft and benign Musculoskeletal: No clubbing, No swelling Integumentary: No rashes, No breakdown Neurological: Normal tone, Other (slurred speech, generalized weakness), Abnormal speech - Studies Laboratory Data (last 24 hrs) 12/03/22 12/03/22 12/03/22 17:36 17:36 17:36 WBC 5.10 Hgb 11.5 L Hct 34.0 L Plt Count 130 L PT 13.7 H INR 1.25 APTT 42.0 H Sodium 133 L Potassium 4.2 BUN 99 H Creatinine 6.18 H Glucose 152 H Magnesium 2.4 Total Bilirubin 0.4 AST 16 ALT 21 Alkaline Phosphatase 107 Assessment and Plan - Plan Assessment plan CVA, slurred speech Dizziness hyponatremia Normocytic anemia hemoglobin thrombocytopenia generalized weakness Acute renal failure CAD Hypertension Diabetes uncontrolled hyperglycemia Assessment plan CVA, slurred speech Dizziness Neuro consult, speech consult, PT eval, CT Brain -No acute intracranial abnormality is seen. If patient's symptoms persist MRI of the brain BP 110 / 48; Pulse 70; Resp 18; Temp 97.2(O); Pulse Ox 100% on R/A. NIH Stroke Scale Scores: NIHSS Score: 3 . Patient with generalized weakness and slurred speech CT negative admitting for observation . referred to neuro. Acute renal failure Nephrology consult Dr. Burton, trend kidney function Avoid nephrotoxic medications 133 acute renal failure BUN 99 creatinine 6.18, Renal diet Normocytic anemia hemoglobin 11.5, hematocrit 34.1, thrombocytopenia platelets 130, CAD Hypertension Diabetes Diabetes uncontrolled hyperglycemia blood sugar 243 Resume appropriate home meds, telemetry Lipid panel in the a.m. Full code DVT heparin Diet cardiac diet daily put him on diet cardiac Discharge Plan: Home Plan to discharge in: 48 Hours - Advance Directives Does patient have a Living Will: Yes Does patient have a Durable POA for Healthcare: No - Code Status/Comfort Care Code Status: Full Code Physician Review: Patient Assessed, Agree with Above Assessment and Plan Critical Care: No Time Spent Managing Pts Care (In Minutes): 50
[2022-12-03] MEDS ORDERED: ACETAMINOPHEN 500 MG TAB PO PRN (21:48)
[2022-12-04] MEDS: HEPARIN 5000 UNIT/ML 1 ML VIAL SQ SCH ×3 (03:36→16:11)
[2022-12-04 06:14] LABS: Absolute Lymphocytes (CBC) 1.1 K/uL (0.7-4.9); Lymphocytes % 24.5 % (15.3-44.8); MCV 96.4 fL (80-100); Platelets 122 thou/uL (152-406); RBC Red Blood Cell Count 3.32 M/uL (4.33-5.43)
[2022-12-04 06:42] LABS: Magnesium 2.3 mg/dL (1.6-2.4); Phosphorus 4.1 mg/dL (2.5-4.9); Potassium 4.3 mEq/L (3.5-5.1)
[2022-12-04] MEDS: INSULIN -REGULAR HUMAN 50 UNIT/0.5 ML ML SQ SCH ×4 (07:30→20:16)
[2022-12-04 08:11] LABS: Specific Gravity 1.009 (1.005-1.030); Urine Bilirubin NEGATIVE (Negative); Urine Blood Negative (Negative); Urine Clarity Clear (Clear); Urine Color Colorless (Yellow); Urine Glucose NEGATIVE (Negative); Urine Protein NEGATIVE (Negative); Urine Urobilinogen Normal (Normal)
--- NOTE | 2022-12-04 09:56 | P.CNS ---
Date of Consult: 12/04/22 Reason for Consult: UBALDO/ CKD Requesting Physician: jasmyn forrest Chief Complaint: CVA evaluation History of Present Illness: 77 yrs old Male with h/o Diabetes - NIDDM; Hypertension; Myocardial infarction; Pacemaker; presents to ER via Unassigned with complaints of Slurred speech, facial droop. Onset: The symptoms/episode began/occurred 1 week(s) ago. occurred at home, occurred while the patient was. Denies fever, headache, neck stiffness, seizure, syncope, double vision, visual field changes, loss of vision, weakness. The symptoms were moderate in the emergency department the symptoms are unchanged. Current symptoms: dysphasia. The patient has not experienced similar symptoms in the past. The patient has not experienced similar symptoms in the past. Patient sent from [facility] for stroke evaluation. Patient reports not feeling right for the last week with dizziness and feeling like he is going to fall. Was noted to have a facial droop and not acting normal per his physician. No head injury. No fall. No changes in medication. Has had a stroke before but thinks only takes aspirin. Symptoms started about 1 week ago progressively worsening.Vital Signs: 17:06 BP 110 / 48; Pulse 70; Resp 18; Temp 97.2(O); Pulse Ox 100% on R/A. NIH Stroke Scale Scores: NIHSS Score: [address] Brain -No acute intracranial abnormality is seen. If patient's symptoms persist MRI of the brain. Chest X-ray shows No acute cardiopulmonary disease. Plan to admit for CVA eval, weakness, acute renal failure. 16:54 This 77 yrs old Male presents to ER via Unassigned with complaints of Slurred rn speech, facial droop. 16:54 The patient presents to the emergency department with a speech or higher order brain rn function problem. Onset: The symptoms/episode began/occurred 1 week(s) ago. Context: occurred at home, occurred while the patient was. Associated signs and symptoms: Pertinent negatives: fever, headache, neck stiffness, seizure, syncope, double vision, visual field changes, loss of vision, weakness. Severity of symptoms: At their worst the symptoms were moderate in the emergency department the symptoms are unchanged. Current symptoms: dysphasia. The patient has not experienced similar symptoms in the past. The patient has been recently seen by a physician:. [facility]. Patient reports not feeling right for the last week with dizziness and feeling like he is going to fall. Was noted to have a facial droop and not acting normal per his physician. No head injury. No fall. No changes in medication. Has had a stroke before but thinks only takes aspirin. Symptoms started about 1 week ago progressively worsening. He follows with Dr. Thao in [place] for his nephrology. He states that he was on dialysis last year but was able to come off due to an improvement in his renal function. Allergies Iodinated Contrast Media [Iodinated Contrast- Oral and IV Dye] Allergy (Verified 10/12/18 20:59) Itching/Hives/Rash Home medications list reviewed: Yes Home Medications: Alogliptin Benzoate [Alogliptin] 25 mg PO DAILY 10/12/18 Amlodipine [Norvasc] 5 mg PO DAILY 10/12/18 Aspirin [Aspir-Low] 81 mg PO DAILY 10/12/18 Atorvastatin Calcium [Lipitor] 40 mg PO BEDTIME 10/12/18 Metformin HCl 1,000 mg PO BID 10/12/18 Metoprolol Succinate [Toprol Xl] 100 mg PO DAILY 10/12/18 allopurinoL [Allopurinol] 100 mg PO BID PRN 10/12/18 - Past Medical/Surgical History Diabetic: Yes -: HTN -: NIDDM -: CAD -: CVA -: TIA -: 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 Thao) -: IgG MM with cryoglobulinemia -: cardiac stents -: pacemaker/defibrillator - Family History Father Medical History: Cancer Notes: of throat cancer Mother Medical History: Heart disease Notes: mother from [place] - Social History Smoking Status: Current every day smoker Alcohol use: Yes CD- Drugs: No Caffeine use: Yes Place of Residence: Home Review of Systems 10-point ROS is otherwise unremarkable General: Weakness Physical Examination Temp Pulse Resp BP Pulse Ox 97.7 F 71 16 99/63 99 12/04/22 08:00 12/04/22 08:00 12/04/22 08:00 12/04/22 08:00 12/04/22 08:00 General: In no apparent distress, Oriented x3, Cooperative HEENT: Atraumatic Neck: Supple Respiratory: Clear to auscultation bilaterally, Normal air movement Cardiovascular: Normal pulses, Regular rate/rhythm Gastrointestinal: Soft and benign, Non-distended, Hyperactive Musculoskeletal: No clubbing, No contractures Integumentary: No rashes, No cyanosis Neurological: Abnormal speech Laboratory Data (last 24 hrs) 12/03/22 12/03/22 12/03/22 17:36 17:36 17:36 WBC 5.10 Hgb 11.5 L Hct 34.0 L Plt Count 130 L PT 13.7 H INR 1.25 APTT 42.0 H Sodium 133 L Potassium 4.2 BUN 99 H Creatinine 6.18 H Glucose 152 H Magnesium 2.4 Total Bilirubin 0.4 AST 16 ALT 21 Alkaline Phosphatase 107 Imagings Data: EXAM DESCRIPTION: CT - Ct Stroke Brain Wo Cont - 12/03/2022 5:26 pm CLINICAL HISTORY: Slurred speech COMPARISON: 2015 TECHNIQUE: Computed axial tomography of the head was obtained. All CT scans are performed using dose optimization technique as appropriate and may include automated exposure control or mA/KV adjustment according to patient size. FINDINGS: An intracranial bleed is not seen . The ventricles are normal in caliber. No extra-axial fluid collection is noted. 5.5 centimeter low-density area within the left cerebrum consistent with gliosis probably secondary to old infarct. 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 Fluid within the sinuses/ mastoids is not seen. IMPRESSION: No acute intracranial abnormality is seen. 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
[2022-12-04 10:22] LABS: Blood Morphology Comment NOT SEEN (NOT SEEN); Platelet Estimate DECR
[2022-12-04] MEDS ORDERED: DRISDOL (VITAMIN D=ERGOCALCIFEROL) 50000 UNIT CAP PO SCH (12:00)
[2022-12-04] MEDS: NA CHLORIDE 0.9% 1,000 ML IV SCH (12:15)
--- NOTE | 2022-12-04 12:27 | EKG ---
Test Date: 2022-12-03 Test Time: 17:46:28 [employer] Architect: MEASUREMENT RESULTS: Intervals: Rate: 72 CA: QRSD: 192 QT: 476 QTc: 521 [place]: P: CA: QRS: 215 T: 69 INTERPRETIVE STATEMENTS: Ventricular-paced rhythm with occasional premature ventricular complexes Biventricular pacemaker detected Abnormal ECG Compared to ECG 10/12/2018 13:14:26 Ventricular premature complex(es) now present Electronically Signed On 12-04-22 12:24:54 CDT by Juan Lambert
--- NOTE | 2022-12-04 17:28 | P.PN ---
Subjective Date of Service: 12/04/22 Chief Complaint: CVA evaluation Patient still has slurred speech. He also reports generalized weakness. Physical Examination - Vital Signs Temperature: 96.9 F Blood Pressure: 95/66 Pulse: 70 Respirations: 14 Pulse Ox (%): 100 - Studies Laboratory Data (last 24 hrs) 12/03/22 12/03/22 12/03/22 17:36 17:36 17:36 WBC 5.10 Hgb 11.5 L Hct 34.0 L Plt Count 130 L PT 13.7 H INR 1.25 APTT 42.0 H Sodium 133 L Potassium 4.2 BUN 99 H Creatinine 6.18 H Glucose 152 H Magnesium 2.4 Total Bilirubin 0.4 AST 16 ALT 21 Alkaline Phosphatase 107 Assessment And Plan - Plan Physical Exam General: Alert, In no apparent distress, Oriented x3 HEENT: PERRLA, EOMI Neck: Supple Respiratory: Clear to auscultation bilaterally Cardiovascular: No edema, regular rhythm. Gastrointestinal: Normal bowel sounds, Soft and benign Integumentary: No rashes Neurological: Slurred speech, no focal motor deficit. Diagnosis Dysarthria History of CVA hyponatremia Normocytic anemia hemoglobin Thrombocytopenia Generalized weakness Acute renal failure CAD Hypertension Diabetes uncontrolled hyperglycemia Assessment plan History of CVA, slurred speech Neuro consulted, speech consulted Seen by PT. CT Brain -No acute intracranial abnormality is seen. 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 Repeat head CT within 24 hours. Significantly elevated lipid panel. High-dose statins. Continue home dose aspirin. Acute renal failure acute on chronic kidney disease stage IV nephrology Dr. Burton seen patient. Monitor renal function. Renal diet Thrombocytopenia platelets 130, Monitor CBC CAD Hypertension Resume home medications. Diabetes mellitus type II With hyperglycemia Insulin sliding scale for glucose management Full code DVT prophylaxis: heparin
[2022-12-04] MEDS: DOCUSATE NA 100 MG CAP PO SCH (20:16)
[2022-12-04] MEDS: ATORVASTATIN 80 MG TAB PO SCH (20:16)
[2022-12-04] MEDS ORDERED: ATORVASTATIN 40 MG TAB PO SCH (21:00)
--- NOTE | 2022-12-05 00:26 | CON ---
Reason For Consult: Consultation called because of possible stroke. History Of Present Illness: Mr. Ch is a 77-year-old patient with [id number] nt diabetes mellitus, hypertension, myocardial infarction, multiple prior strokes who [facility] known stroke onset about a week prior to him being seen into the clinic. There was reported slurred speech, facial droop over a week ago and the patient also had visual defic its and he was [facility] [place] also as he was falling and some f acial drooping. His CT scan in the emergency room identified multiple areas of chronic strokes. He had a 5.5 cm low-density area in the left cerebrum consistent with gliosis secondary to an old infarc t. There is an additional 3.5 cm old stroke in the right cerebellum and moderate small vessel ischem ic disease. The patient's chronic strokes do reproduce symptoms of incoordination, especially on the left and weakness on the right, which do include some of the patient's complaints, which are current complaints. He has not had an MRI as yet. NIH score in the emergency room was 3. Allergies: IODINE. Medications: Norvasc 5 mg daily, aspirin 81 mg daily, Lipitor 80 mg at bedtime, Colace 100 mg twice daily, vitamin D 22483 units weekly, heparin 5000 units subcutaneous every 8 hours, Tylenol 500 mg ev kika 4 hours as needed. Laboratory Studies: White blood cell count 4.3, hemoglobin 11, platelets 122. INR 1.25. Sodium 135 , potassium 4.3, chloride 104, BUN 99, creatinine 5.92. Glucose ranged from 90-133, calcium 8.3, mag nesium 2.3, phosphorus 4.1. Family History: Noncontributory. Social History: No recent alcohol, tobacco, or IV drug use. Physical Examination: Vital Signs: Blood pressure 95/66, pulse 70, respiratory rate 16, temperature 97.1, oxygen saturatio n 100% room air. General: Mr. Ch is resting comfortably in bed. He does have a chronic right-sided weakness, but otherwise, he has no discoordination. HEENT: He is normocephalic and atraumatic. Sclerae anicteric. Oropharynx is moist. Neck: Supple. Chest: Clear. Heart: Regular. Extremities: Show no significant edema, cyanosis or clubbing. He does have right upper and lower ex tremity weakness, that is chronic, incoordination, more on the left than the right side. Sensation d ecreased in the right upper and lower extremity compared to the left. In terms of his mobilization, he was able to mobilize 10 steps with the physical therapist and it is noted he did have significant difficulty with stability. At home, he does live in an upstairs floor that does have 10 steps to go up and he is unsteady in terms of his gait and again noted to require significant help to be able to return to a level of safe ambulation. With physical therapist in the afternoon, he actually did ambu late 250 feet with a straight cane with contact guard assistance and it is recommended aggressive the rapy and his plan was to discharge to home and perhaps continue outpatient therapy especially as ther e is no apparent new stroke at this point. Assessment: Mr. Ch is a 77-year-old patient with multiple chronic strokes and stroke risk fac tors, which include hypertension, dyslipidemia, and likely diabetes as well. Plan: 1.Physical therapy may be helpful outpatient as he is walking 250 feet. 2.Continue with management of hypertension, dyslipidemia and likely diabetes mellitus. 3.Continue with antiplatelet medication regimen that is aspirin, may add Plavix 75 mg daily for 6 we eks. After his discharge, he may follow up in Dr. Rashid's clinic within a month. SATYA/EULALIO Voice ID: [id number] Report ID: [id number]
[2022-12-05] MEDS: NA CHLORIDE 0.9% 1,000 ML IV SCH ×2 (01:27→14:40)
[2022-12-05] MEDS: HEPARIN 5000 UNIT/ML 1 ML VIAL SQ SCH ×3 (01:27→16:50)
[2022-12-05 02:44] VITALS: BMI 26.9
[2022-12-05] MEDS: INSULIN -REGULAR HUMAN 50 UNIT/0.5 ML ML SQ SCH ×4 (07:30→21:00)
[2022-12-05 07:31] LABS: Absolute Lymphocytes (CBC) 1.1 K/uL (0.7-4.9); Lymphocytes % 27.1 % (15.3-44.8); MCV 96.6 fL (80-100); MPV 8.5 fL (7.6-11.3); Platelets 110 thou/uL (152-406); RBC Red Blood Cell Count 3.21 M/uL (4.33-5.43)
[2022-12-05 07:45] LABS: Magnesium 2.3 mg/dL (1.6-2.4); Phosphorus 3.7 mg/dL (2.5-4.9); Potassium 3.7 mEq/L (3.5-5.1); Uric Acid 11.5 mg/dL (3.5-7.2)
[2022-12-05] MEDS: AMLODIPINE 5 MG TAB PO SCH (08:31)
[2022-12-05] MEDS: ASPIRIN EC 81 MG TAB PO SCH (08:31)
[2022-12-05] MEDS: DOCUSATE NA 100 MG CAP PO SCH ×2 (08:31→21:17)
[2022-12-05 08:38] LABS: Hepatitis B Core Ab, Total Nonreactive (Nonreactive); Hepatitis B surface AG Interp. Nonreactive (Nonreactive)
[2022-12-05 08:39] LABS: Hepatitis B Surface Ab - Quant < 3.10 mIU/mL (<8.0)
--- NOTE | 2022-12-05 10:31 | P.DS ---
Admission Date: 12/03/22 Discharge Date: 12/05/22 Disposition: ROUTINE DISCHARGE Discharge Condition: FAIR Reason for Admission: CVA evaluation Brief History of Present Illness: 77 yrs old Male with h/o Diabetes - NIDDM; Hypertension; Myocardial infarction; Pacemaker; presents to ER via Unassigned with complaints of Slurred speech, facial droop. Onset: The symptoms/episode began/occurred 1 week(s) ago. occurred at home. Patient sent from [place] clinic for stroke evaluation. Patient reports not feeling right for the last week with dizziness. Was noted to have a facial droop and not acting normal per his physician. No head injury. No fall. No changes in medication. Has had a stroke before but only takes aspirin. Vital Signs: 17:06 BP 110 / 48; Pulse 70; Resp 18; Temp 97.2(O); Pulse Ox 100% on R/A. NIH Stroke Scale Scores: NIHSS Score: [address] Brain -No acute intracranial abnormality is seen. Chest X-ray shows No acute cardiopulmonary disease. Patient has a pacemaker. Patient was admitted for further management. Hospital Course: Diagnosis Dysarthria History of CVA hyponatremia Normocytic anemia hemoglobin Thrombocytopenia Generalized weakness Acute renal failure CAD Hypertension Diabetes uncontrolled hyperglycemia Patient admitted to the medical floor and the following medical problems addressed: Assessment plan History of CVA, slurred speech Neuro consulted, speech consulted Seen by PT. patient was able to ambulate several feet with a walker unassisted. CT Brain -No acute intracranial abnormality is seen. 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 Patient seen and evaluated by neurology Dr. Rashid recommended aspirin and Plavix and folic acid and Lipitor. Significantly elevated lipid panel. High-dose statins. His Lipitor dose increased to 80 mg at bedtime. Continued aspirin. Acute renal failure acute on chronic kidney disease stage IV nephrology Dr. Burton seen patient. Serum creatinine trended down. Baseline chronic kidney disease stage IV. Follow-up with nephrology as outpatient Thrombocytopenia platelets 130, Monitor CBC CAD Hypertension Blood pressure was borderline low. Held patient antihypertensive-metoprolol Diabetes mellitus type II With hyperglycemia Insulin sliding scale for glucose management Metformin resumed on discharge. Vital Signs/Physical Exam: Temp Pulse Resp BP Pulse Ox 97.0 F 70 16 101/64 99 12/05/22 07:47 12/05/22 08:31 12/05/22 07:47 12/05/22 08:31 12/05/22 07:47 General: Alert, In no apparent distress, Oriented x3 HEENT: Mucous membr. moist/pink Neck: Supple, JVD not distended Respiratory: Clear to auscultation bilaterally, Normal air movement Cardiovascular: No edema, Regular rate/rhythm, Normal S1 S2 Gastrointestinal: Soft and benign, Non-distended, No tenderness Musculoskeletal: No swelling Integumentary: No rashes Neurological: Normal strength at 5/5 x4 extr Laboratory Data at Discharge: WBC 4.00 thou/uL (4.3-10.9) L 12/05/22 06:55 Hgb 10.8 g/dL (13.6-17.9) L 12/05/22 06:55 Hct 31.0 % (39.6-49.0) L 12/05/22 06:55 Plt Count 110 thou/uL (152-406) L 12/05/22 06:55 PT 13.7 SECONDS (9.5-12.5) H 12/03/22 17:36 INR 1.25 12/03/22 17:36 APTT 42.0 SECONDS (24.3-36.9) H 12/03/22 17:36 Sodium 135 mEq/L (136-145) L 12/05/22 06:55 Potassium 3.7 mEq/L (3.5-5.1) D 12/05/22 06:55 BUN 82 mg/dL (7-18) H 12/05/22 06:55 Creatinine 5.28 mg/dL (0.70-1.30) H 12/05/22 06:55 Glucose 86 mg/dL (74-106) 12/05/22 06:55 Uric Acid 11.5 mg/dL (3.5-7.2) H 12/05/22 06:55 Phosphorus 3.7 mg/dL (2.5-4.9) 12/05/22 06:55 Magnesium 2.3 mg/dL (1.6-2.4) 12/05/22 06:55 Total Bilirubin 0.4 mg/dL (0.2-1.0) 12/03/22 17:36 AST 16 U/L (15-37) 12/03/22 17:36 ALT 21 U/L (16-61) 12/03/22 17:36 Alkaline Phosphatase 107 U/L (45-117) 12/03/22 17:36 Triglycerides 380 mg/dL (<150) H 12/04/22 06:05 Cholesterol 297 mg/dL (<200) H 12/04/22 06:05 HDL Cholesterol 33 mg/dL (40-60) L 12/04/22 06:05 Cholesterol/HDL Ratio 9.00 12/04/22 06:05 Home Medications: Alogliptin Benzoate [Alogliptin] 25 mg PO DAILY 10/12/18 Aspirin [Aspir-Low] 81 mg PO DAILY 10/12/18 Metformin HCl 1,000 mg PO BID 10/12/18 allopurinoL [Allopurinol] 100 mg PO BID PRN 10/12/18 Atorvastatin Calcium [Lipitor] 80 mg PO BEDTIME #30 tab 12/05/22 Clopidogrel Bisulfate [Plavix] 75 mg PO DAILY #30 tab 12/05/22 Folic Acid 1 mg PO DAILY #30 tab 12/05/22 Vitamin D [Drisdol*] 50,000 unit PO Q7D #4 cap 12/05/22 New Medications: Vitamin D [Drisdol*] 50,000 unit PO Q7D #4 cap Folic Acid 1 mg PO DAILY #30 tab Atorvastatin Calcium [Lipitor] 80 mg PO BEDTIME #30 tab Clopidogrel Bisulfate [Plavix] 75 mg PO DAILY #30 tab Diet: AHA Activity: Fall precautions Followup: CHEY GUERRIER [Primary Care Provider] - 1-2 Weeks
--- NOTE | 2022-12-05 18:09 | P.PN ---
Subjective Date of Service: 12/05/22 Chief Complaint: CVA evaluation Patient still has slurred speech. No new complaint. Patient ambulated several feet during PT yesterday. He was complaining of dizziness during PT today. Patient blood pressure was noted to be soft. Physical Examination - Vital Signs Temperature: 97.3 F Blood Pressure: 104/67 Pulse: 68 Respirations: 16 Pulse Ox (%): 98 Assessment And Plan - Plan Physical Exam General: Alert, In no apparent distress, Oriented x3 HEENT: PERRLA, EOMI Neck: Supple Respiratory: Clear to auscultation bilaterally Cardiovascular: No edema, regular rhythm. Gastrointestinal: Normal bowel sounds, Soft and benign Integumentary: No rashes Neurological: Slurred speech, no focal motor deficit. Diagnosis Dysarthria History of CVA hyponatremia Normocytic anemia hemoglobin Thrombocytopenia Generalized weakness Acute renal failure CAD Hypertension Diabetes uncontrolled hyperglycemia Assessment plan History of CVA, slurred speech Neuro consulted, seen by speech. Seen by PT. CT Brain -No acute intracranial abnormality is seen. 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 Significantly elevated lipid panel. High-dose statins. Continue home dose aspirin. Acute renal failure acute on chronic kidney disease stage IV nephrology Dr. Burton seen patient. Monitor renal function. Renal diet. Dr. Burton is planning to initiate dialysis. General surgery consulted for dialysis catheter placement. Thrombocytopenia Monitor CBC CAD Hypertension Hold home antihypertensives. Aspirin and Plavix Diabetes mellitus type II With hyperglycemia Insulin sliding scale for glucose management Full code DVT prophylaxis: heparin
[2022-12-05] MEDS: ATORVASTATIN 80 MG TAB PO SCH (21:17)
--- NOTE | 2022-12-05 21:26 | P.PN ---
Date of Service: 12/05/22 Vital Signs Temp Pulse Resp BP Pulse Ox 97.3 F 68 16 104/67 98 12/05/22 18:09 12/05/22 18:12/05/22 18:12/05/22 18:09 12/05/22 18:09 Medications Acetaminophen (Acetaminophen 500 Mg Tab) 500 mg PO Q4HP PRN PRN Reason: Pain scale 2-4 (Mild) Amlodipine Besylate (Amlodipine 5 Mg Tab) 5 mg PO DAILY [facility] Last Admin: 12/05/22 08:31 Dose: Not Given Aspirin (Aspirin Ec 81 Mg Tab) 81 mg PO DAILY [facility] Last Admin: 12/05/22 08:31 Dose: 81 mg Atorvastatin Calcium (Atorvastatin 80 Mg Tab) 80 mg PO BEDTIME [facility] Last Admin: 12/05/22 21:17 Dose: 80 mg Clopidogrel Bisulfate (Clopidogrel 75 Mg Tablet) 75 mg PO DAILY [facility] Docusate Sodium (Docusate Na 100 Mg Cap) 100 mg PO BID [facility] Last Admin: 12/05/22 21:17 Dose: 100 mg Ergocalciferol (Drisdol (Vitamin D=Ergocalciferol) 65814 Unit Cap) 50,000 unit PO Q7D [facility] Last Admin: 12/04/22 12:16 Dose: 50,000 unit Heparin Sodium (Porcine) (Heparin 5000 Unit/Ml 1 Ml Vial) 5,000 unit SQ Q8HR [facility] Last Admin: 12/05/22 16:50 Dose: 5,000 unit Sodium Chloride (Ns 1000 Ml Ivbag) 1,000 mls @ 75 mls/hr IV .[id number] [facility] Last Admin: 12/05/22 14:40 Dose: Not Given Insulin Human Regular (Insulin -Regular Human 50 Unit/0.5 Ml Ml) 0 unit SQ ACHS [facility]; Protocol Last Admin: 12/05/22 21:00 Dose: Not Given Sodium Chloride (Flush Normal Saline 10 Ml) 10 ml IV BID [facility] Last Admin: 12/05/22 21:17 Dose: 10 ml Assessment/ Plan: Nephrology No dyspnea No chest pain No acute events overnight Vitals, medications, blood work and imaging reviewed in the chart. General: In no apparent distress, Oriented x3, Cooperative HEENT: Atraumatic Neck: Supple Respiratory: Clear to auscultation bilaterally, Normal air movement Cardiovascular: Normal pulses, Regular rate/rhythm Gastrointestinal: Soft and benign, Non-distended, Hyperactive Musculoskeletal: No clubbing, No contractures Integumentary: No rashes, No cyanosis Neurological: Abnormal speech Laboratory Data (last 24 hrs) 12/03/22 12/03/22 12/03/22 17:36 17:36 17:36 WBC 5.10 Hgb 11.5 L Hct 34.0 L Plt Count 130 L PT 13.7 H INR 1.25 APTT 42.0 H Sodium 133 L Potassium 4.2 BUN 99 H Creatinine 6.18 H Glucose 152 H Magnesium 2.4 Total Bilirubin 0.4 AST 16 ALT 21 Alkaline Phosphatase 107 Imagings Data: EXAM DESCRIPTION: CT - Ct Stroke Brain Wo Cont - 12/03/2022 5:26 pm CLINICAL HISTORY: Slurred speech COMPARISON: 2015 TECHNIQUE: Computed axial tomography of the head was obtained. All CT scans are performed using dose optimization technique as appropriate and may include automated exposure control or mA/KV adjustment according to patient size. FINDINGS: An intracranial bleed is not seen . The ventricles are normal in caliber. No extra-axial fluid collection is noted. 5.5 centimeter low-density area within the left cerebrum consistent with gliosis probably secondary to old infarct. 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 Fluid within the sinuses/ mastoids is not seen. IMPRESSION: No acute intracranial abnormality is seen. 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 Serrano and Dr. Chowdhury
[2022-12-06] MEDS: HEPARIN 5000 UNIT/ML 1 ML VIAL SQ SCH ×3 (01:57→17:00)
[2022-12-06] MEDS: NA CHLORIDE 0.9% 1,000 ML IV SCH ×2 (07:11→17:20)
[2022-12-06] MEDS: INSULIN -REGULAR HUMAN 50 UNIT/0.5 ML ML SQ SCH ×4 (07:30→20:40)
[2022-12-06 07:34] LABS: MCV 97.3 fL (80-100); RBC Red Blood Cell Count 3.29 M/uL (4.33-5.43)
[2022-12-06 07:35] LABS: Absolute Lymphocytes (CBC) 1.1 K/uL (0.7-4.9); MPV 7.9 fL (7.6-11.3); Platelets 118 thou/uL (152-406)
[2022-12-06 07:49] LABS: Magnesium 2.1 mg/dL (1.6-2.4); Phosphorus 3.2 mg/dL (2.5-4.9); Potassium 4.1 mEq/L (3.5-5.1)
[2022-12-06] MEDS: DOCUSATE NA 100 MG CAP PO SCH ×2 (08:25→20:39)
[2022-12-06] MEDS: ASPIRIN EC 81 MG TAB PO SCH (08:25)
[2022-12-06] MEDS: AMLODIPINE 5 MG TAB PO SCH (08:26)
[2022-12-06] MEDS: CLOPIDOGREL 75 MG TABLET PO SCH (08:26)
--- NOTE | 2022-12-06 09:20 | P.CNS ---
Date of Consult: 12/06/22 Reason for consult: Needs urgent hemodialysis History of present illness: 77-year-old gentleman presented to the emergency room with mental status changes and strokelike symptoms. He was worked up for that and in the meantime was found to have chronic kidney disease stage IV with IgG monoclonal kappa MM with cryoglobulinemia. Patient has been dialyzed in the past temporarily. Patient now requires hemodialysis. I was contacted by Dr. Correa for placement of a tunneled dialysis catheter. Patient denies any sore throat, runny nose, cough, headache, dizziness, chest pain, fever or chills. Review of systems: Otherwise unremarkable Past medical history: Hypertension, type 2 diabetes, coronary artery disease, TIA Past surgical history: Pacemaker and defibrillator Allergies: Iodine contrast Social history: Patient does smoke and drink alcohol and has been counseled Family history: Father with throat cancer and mother with heart attack Vital signs: Stable, afebrile Physical exam: Awake and alert Head and neck exam: No masses Chest: Clear Heart: S1-S2 Abdomen: Soft Extremity: Neurovascular intact, nontender Neuro: Nonfocal Diagnostic data: White count 4000, platelets of 110,000, INR 1.25, BUN of 82 and creatinine of 5.28 Assessment: Acute renal failure Plan/recommendation: Placement of tunneled dialysis catheter. Patient understands risk, benefits and alternatives and agrees to procedure. CC: Dr. Burton's office
[2022-12-06] MEDS ORDERED: CEFAZOLIN SODIUM 2 GM/VIAL ONE (09:23)
[2022-12-06] MEDS ORDERED: MANNITOL 25% 12.5 GM/50 ML VIAL IV PRN (09:49)
[2022-12-06] MEDS ORDERED: NA CHLORIDE 0.9% 1,000 ML IV PRN (09:49)
[2022-12-06] MEDS ORDERED: NS 0.9% VIAL 10 ML ONE (09:52)
[2022-12-06] MEDS ORDERED: LIDOCAINE 1% MPF 30 ML VIAL ONE (09:53)
[2022-12-06] MEDS ORDERED: HEPARIN 5000 UNIT/ML 1 ML VIAL ONE (09:53)
[2022-12-06] MEDS ORDERED: NA CHLORIDE 0.9% 100 ML ONE (09:54)
[2022-12-06] MEDS ORDERED: ALBUMIN HUMAN 25% 50 ML IV SCH (10:00)
[2022-12-06] MEDS ORDERED: propofoL 200 MG/20 ML VIAL IV ONE (10:00)
[2022-12-06] MEDS ORDERED: MIDAZOLAM HCL 2 MG/2 ML INJ ONE (10:02)
[2022-12-06] MEDS ORDERED: FENTANYL CITR 100 MCG/2 ML ONE (10:02)
[2022-12-06] MEDS ORDERED: Phenylephrine HCl 10 MG/ML 1 ML VIAL ONE (10:30)
[2022-12-06] MEDS ORDERED: NS 0.9% VIAL 20 ML ONE (10:31)
[2022-12-06] MEDS ORDERED: Mastisol Adhesive Liq ONE (11:02)
--- NOTE | 2022-12-06 11:20 | P.OP ---
Date of Service: 12/06/22 Preop diagnosis: Acute renal failure Postop diagnosis: Same Procedure performed: Ultrasound-guided placement of right IJ tunneled hemo dialysis catheter, interpretation of intraoperative fluoroscopy Surgeon: Axel Chowdhury MD Supervisor Tunnel Heading: None Estimated blood loss: Minimal Specimen: None Findings: Normal anatomy Anesthesia: General Complications: None Drains: None Fluids and blood products: Nonapplicable Disposition: Recovery room Operative note: Patient brought to the OR and placed in the supine position. General anesthesia begun. Patient prepped and draped in usual sterile fashion. Lidocaine 1% infiltrated locally. 18-gauge needle used to access the right IJ vein under ultrasound guidance. Guidewire passed. Position confirmed with fluoroscopy. Counterincision made on the right anterior chest wall. Tunneling device used to tunnel the catheter between the 2 wounds. Seldinger technique used. Tip of the catheter placed in the superior vena cava under fluoroscopy. Catheter flushed with heparin and packed with heparin with good blood flow. 3-0 chromic used to reapproximate subcutaneous tissue and close skin. 0 nylon used to secure the tube to the chest wall. Sterile dressing applied. Patient awakened and taken to recovery room in good general condition. Chest x-ray has been ordered. CC:
--- NOTE | 2022-12-06 11:27 | RAD REPORT ---
EXAM DESCRIPTION: RAD - Fluoroscopy <1 Hour - 12/06/2022 11:22 am CLINICAL HISTORY: Venous catheter insertion. HD CATH COMPARISON: No comparisons FINDINGS: Fluoroscopic imaging is submitted from placement of a venous catheter. Details of the pro cedure not available. Fluoroscopy time: 0.1 minutes.
--- NOTE | 2022-12-06 11:27 | RAD REPORT ---
EXAM DESCRIPTION: RAD - Chest Single View - 12/06/2022 11:22 am CLINICAL HISTORY: s/p HD cath placement Chest pain. COMPARISON: Chest Single View dated 10/13/2018; Chest Single View dated 10/12/2018; Chest Single View dated 08/20/2015; CHEST SINGLE VIEW dated 04/16/2014 FINDINGS: Portable technique limits examination quality. Right-sided venous catheter has tip in the SVC. No postprocedure pneumothorax.
--- NOTE | 2022-12-06 15:39 | P.PN ---
Subjective Date of Service: 12/06/22 Chief Complaint: CVA evaluation Patient has no new complaint. Blood pressure readings have improved. Physical Examination - Vital Signs Temperature: 97.3 F Blood Pressure: 110/66 Pulse: 70 Respirations: 16 Pulse Ox (%): 98 Assessment And Plan - Plan Physical Exam General: Alert, In no apparent distress, Oriented x3 HEENT: PERRLA, EOMI Respiratory: Clear to auscultation bilaterally Cardiovascular: No edema, regular rhythm. Gastrointestinal: Normal bowel sounds, Soft and benign Neurological: Slurred speech, no focal motor deficit. Diagnosis Dysarthria History of CVA hyponatremia Normocytic anemia hemoglobin Thrombocytopenia Generalized weakness Acute renal failure CAD Hypertension Diabetes uncontrolled hyperglycemia Assessment plan History of CVA, slurred speech Neuro consulted, seen by speech. Seen by PT. CT Brain -No acute intracranial abnormality is seen. 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 Significantly elevated lipid panel. Continue Lipitor 80 mg nightly. Continue home dose aspirin. Acute renal failure acute on chronic kidney disease stage IV nephrology Dr. Burton seen patient. Dr. Burton is planning to initiate dialysis. General surgery Dr. Chowdhury planning dialysis catheter placement today. Hemodialysis orders. Dr. Burton Thrombocytopenia Monitor CBC CAD Hypertension Hold home antihypertensives. Continue aspirin and Plavix Diabetes mellitus type II Blood glucose readings improved. Insulin sliding scale for glucose management Full code DVT prophylaxis: heparin
[2022-12-06] MEDS: EPOETIN ALFA 10,000 UNIT/ML VIAL IV SCH (19:00)
[2022-12-06] MEDS: ATORVASTATIN 80 MG TAB PO SCH (20:39)
[2022-12-06] MEDS: HYDROCODONE/APAP 7.5/325 MG TAB PO PRN (20:42)
--- NOTE | 2022-12-06 20:59 | P.PN ---
Date of Service: 12/06/22 Vital Signs Temp Pulse Resp BP Pulse Ox 96.9 F 76 16 108/64 99 12/06/22 16:00 12/06/22 16:00 12/06/22 20:42 12/06/22 16:00 12/06/22 20:42 Medications Acetaminophen (Acetaminophen 500 Mg Tab) 500 mg PO Q4HP PRN PRN Reason: Pain scale 2-4 (Mild) Hydrocodone Bitart/Acetaminophen (Hydrocodone/Apap 7.5/325 Mg Tab) 1 tab PO Q6H PRN PRN Reason: Pain scale 8-10 (Severe) Last Admin: 12/06/22 20:42 Dose: 1 tab Amlodipine Besylate (Amlodipine 5 Mg Tab) 5 mg PO DAILY [facility] Last Admin: 12/06/22 08:26 Dose: Not Given Aspirin (Aspirin Ec 81 Mg Tab) 81 mg PO DAILY [facility] Last Admin: 12/06/22 08:25 Dose: Not Given Atorvastatin Calcium (Atorvastatin 80 Mg Tab) 80 mg PO BEDTIME [facility] Last Admin: 12/06/22 20:39 Dose: 80 mg Clopidogrel Bisulfate (Clopidogrel 75 Mg Tablet) 75 mg PO DAILY [facility] Last Admin: 12/06/22 08:26 Dose: Not Given Docusate Sodium (Docusate Na 100 Mg Cap) 100 mg PO BID [facility] Last Admin: 12/06/22 20:39 Dose: 100 mg Epoetin Matt (Epoetin Matt 10,000 Unit/Ml Vial) 10,000 unit IV EVERY HD [facility] Last Admin: 12/06/22 19:00 Dose: 10,000 unit Ergocalciferol (Drisdol (Vitamin D=Ergocalciferol) 50487 Unit Cap) 50,000 unit PO Q7D [facility] Last Admin: 12/04/22 12:16 Dose: 50,000 unit Heparin Sodium (Porcine) (Heparin 5000 Unit/Ml 1 Ml Vial) 5,000 unit SQ Q8HR [facility] Last Admin: 12/06/22 17:00 Dose: Not Given Heparin Sodium (Porcine) (Heparin 1,000 Unit/Ml Vial) 6,000 unit IV EVERY HD PRN PRN Reason: AFTER EACH Last Admin: 12/06/22 19:16 Dose: 6,000 unit Sodium Chloride (Ns 1000 Ml Ivbag) 1,000 mls @ 75 mls/hr IV .[id number] [facility] Last Admin: 12/06/22 17:20 Dose: Not Given Sodium Chloride (Ns 1000 Ml Ivbag) 1,000 mls @ 0 mls/hr IV .Q0M PRN; Protocol PRN Reason: Priming and BP support at HD Stop: 12/06/22 23:59 Albumin Human (Albumin 25%) 50 mls @ 100 mls/hr IV EVERY HD [facility] Insulin Human Regular (Insulin -Regular Human 50 Unit/0.5 Ml Ml) 0 unit SQ ACHS [facility]; Protocol Last Admin: 12/06/22 20:40 Dose: Not Given Mannitol (Mannitol 25% 12.5 Gm/50 Ml Vial) 12.5 gm IV EVERY HD PRN PRN Reason: BP SUPPORT DURING HD Sodium Chloride (Flush Normal Saline 10 Ml) 10 ml IV BID [facility] Last Admin: 12/06/22 20:39 Dose: 10 ml Assessment/ Plan: Nephrology No dyspnea No chest pain No acute events overnight Seen and examined in post-op today Vitals, medications, blood work and imaging reviewed in the chart. General: In no apparent distress, Oriented x3, Cooperative HEENT: Atraumatic Neck: Supple Respiratory: Clear to auscultation bilaterally, Normal air movement Cardiovascular: Normal pulses, Regular rate/rhythm Gastrointestinal: Soft and benign, Non-distended, Hyperactive Musculoskeletal: No clubbing, No contractures Integumentary: No rashes, No cyanosis Neurological: Abnormal speech Laboratory Data (last 24 hrs) 12/03/22 12/03/22 12/03/22 17:36 17:36 17:36 WBC 5.10 Hgb 11.5 L Hct 34.0 L Plt Count 130 L PT 13.7 H INR 1.25 APTT 42.0 H Sodium 133 L Potassium 4.2 BUN 99 H Creatinine 6.18 H Glucose 152 H Magnesium 2.4 Total Bilirubin 0.4 AST 16 ALT 21 Alkaline Phosphatase 107 Imagings Data: EXAM DESCRIPTION: CT - Ct Stroke Brain Wo Cont - 12/03/2022 5:26 pm CLINICAL HISTORY: Slurred speech COMPARISON: 2015 TECHNIQUE: Computed axial tomography of the head was obtained. All CT scans are performed using dose optimization technique as appropriate and may include automated exposure control or mA/KV adjustment according to patient size. FINDINGS: An intracranial bleed is not seen . The ventricles are normal in caliber. No extra-axial fluid collection is noted. 5.5 centimeter low-density area within the left cerebrum consistent with gliosis probably secondary to old infarct. 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 Fluid within the sinuses/ mastoids is not seen. IMPRESSION: No acute intracranial abnormality is seen. If patient's symptoms persist MRI of the brain would be recommended EXAM DESCRIPTION: RAD - Chest Single View - 12/06/2022 11:22 am CLINICAL HISTORY: s/p HD cath placement Chest pain. COMPARISON: Chest Single View dated 10/13/2018; Chest Single View dated 10/12/2018; Chest Single View dated 08/20/2015; CHEST SINGLE VIEW dated 04/16/2014 FINDINGS: Portable technique limits examination quality. Right-sided venous catheter has tip in the SVC. No postprocedure pneumothorax. No abnormal finding seen to suggest tuberculosis. 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
[2022-12-07] MEDS: HEPARIN 5000 UNIT/ML 1 ML VIAL SQ SCH ×3 (01:02→16:34)
[2022-12-07 04:00] VITALS: O2SAT 95
[2022-12-07 05:58] LABS: Potassium 3.6 mEq/L (3.5-5.1)
[2022-12-07] MEDS: NA CHLORIDE 0.9% 1,000 ML IV SCH ×2 (06:40→14:10)
[2022-12-07 06:43] LABS: Specific Gravity 1.018 (1.005-1.030); Urine Bacteria None Seen /HPF (<20); Urine Bilirubin NEGATIVE (Negative); Urine Blood Negative (Negative); Urine Clarity Clear (Clear); Urine Color Light-Yellow (Yellow); Urine Glucose NEGATIVE (Negative); Urine Protein TRACE (Negative); Urine RBC <5 /HPF (None Seen); Urine Urobilinogen Normal (Normal); Urine pH 6.5 (5.0-7.0)
[2022-12-07 07:18] LABS: UR MICROALBUMIN 3.6 mg/dL (< 1.9); UR PROTEIN 20.5 mg/dL (<11.9); Urine Protein/Creatinine Ratio 0.13 ratio (<0.15)
[2022-12-07] MEDS: INSULIN -REGULAR HUMAN 50 UNIT/0.5 ML ML SQ SCH ×4 (07:30→21:00)
[2022-12-07] MEDS: AMLODIPINE 5 MG TAB PO SCH (08:33)
[2022-12-07] MEDS: DOCUSATE NA 100 MG CAP PO SCH ×2 (08:34→21:00)
[2022-12-07] MEDS: CLOPIDOGREL 75 MG TABLET PO SCH (08:34)
[2022-12-07] MEDS: ASPIRIN EC 81 MG TAB PO SCH (08:34)
--- NOTE | 2022-12-07 17:07 | P.PN ---
Subjective Date of Service: 12/07/22 Chief Complaint: CVA evaluation Patient has no new complaint. Patient underwent hemodialysis yesterday. Physical Examination - Vital Signs Temperature: 97.9 F Blood Pressure: 95/50 Pulse: 70 Respirations: 18 Pulse Ox (%): 97 Assessment And Plan - Plan Physical Exam General: Alert, In no apparent distress, Oriented x3 HEENT: PERRLA, EOMI Respiratory: Clear to auscultation bilaterally Cardiovascular: No edema, regular rhythm. Gastrointestinal: Normal bowel sounds, Soft and benign Neurological: Slurred speech, no focal motor deficit. Diagnosis Dysarthria History of CVA hyponatremia Normocytic anemia hemoglobin Thrombocytopenia Generalized weakness Acute renal failure CAD Hypertension Diabetes uncontrolled hyperglycemia Assessment plan History of CVA, slurred speech Neuro consulted, seen by speech. Seen by PT. CT Brain -No acute intracranial abnormality is seen. 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 Continue Lipitor 80 mg nightly for hyperlipidemia. Continue home dose aspirin. Acute renal failure acute on chronic kidney disease stage IV nephrology Dr. Burton seen patient. Status post dialysis catheter placement and hemodialysis yesterday. Further hemodialysis per Dr. Burton Social service consulted for outpatient hemodialysis seat. Thrombocytopenia Monitor CBC CAD Hypertension Hold home antihypertensives due to borderline low blood pressure. Continue aspirin and Plavix Diabetes mellitus type II Blood glucose readings improved. Insulin sliding scale for glucose management Full code DVT prophylaxis: heparin
--- NOTE | 2022-12-07 18:32 | P.PN ---
Date of Service: 12/07/22 Vital Signs Temp Pulse Resp BP Pulse Ox 97.8 F 70 18 102/55 L 99 12/07/22 17:52 12/07/22 17:52 12/07/22 17:52 12/07/22 17:52 12/07/22 17:52 Medications Acetaminophen (Acetaminophen 500 Mg Tab) 500 mg PO Q4HP PRN PRN Reason: Pain scale 2-4 (Mild) Hydrocodone Bitart/Acetaminophen (Hydrocodone/Apap 7.5/325 Mg Tab) 1 tab PO Q6H PRN PRN Reason: Pain scale 8-10 (Severe) Last Admin: 12/06/22 20:42 Dose: 1 tab Amlodipine Besylate (Amlodipine 5 Mg Tab) 5 mg PO DAILY [facility] Last Admin: 12/07/22 08:33 Dose: Not Given Aspirin (Aspirin Ec 81 Mg Tab) 81 mg PO DAILY [facility] Last Admin: 12/07/22 08:34 Dose: 81 mg Atorvastatin Calcium (Atorvastatin 80 Mg Tab) 80 mg PO BEDTIME [facility] Last Admin: 12/06/22 20:39 Dose: 80 mg Clopidogrel Bisulfate (Clopidogrel 75 Mg Tablet) 75 mg PO DAILY [facility] Last Admin: 12/07/22 08:34 Dose: 75 mg Docusate Sodium (Docusate Na 100 Mg Cap) 100 mg PO BID [facility] Last Admin: 12/07/22 08:34 Dose: 100 mg Epoetin Matt (Epoetin Matt 10,000 Unit/Ml Vial) 10,000 unit IV EVERY HD [facility] Last Admin: 12/06/22 19:00 Dose: 10,000 unit Ergocalciferol (Drisdol (Vitamin D=Ergocalciferol) 13835 Unit Cap) 50,000 unit PO Q7D [facility] Last Admin: 12/04/22 12:16 Dose: 50,000 unit Heparin Sodium (Porcine) (Heparin 5000 Unit/Ml 1 Ml Vial) 5,000 unit SQ Q8HR [facility] Last Admin: 12/07/22 16:34 Dose: 5,000 unit Heparin Sodium (Porcine) (Heparin 1,000 Unit/Ml Vial) 6,000 unit IV EVERY HD PRN PRN Reason: AFTER EACH Last Admin: 12/06/22 19:16 Dose: 6,000 unit Sodium Chloride (Ns 1000 Ml Ivbag) 1,000 mls @ 75 mls/hr IV .[id number] [facility] Last Admin: 12/07/22 14:10 Dose: 1,000 mls Albumin Human (Albumin 25%) 50 mls @ 100 mls/hr IV EVERY HD [facility] Insulin Human Regular (Insulin -Regular Human 50 Unit/0.5 Ml Ml) 0 unit SQ ACHS [facility]; Protocol Last Admin: 12/07/22 16:30 Dose: Not Given Mannitol (Mannitol 25% 12.5 Gm/50 Ml Vial) 12.5 gm IV EVERY HD PRN PRN Reason: BP SUPPORT DURING HD Sodium Chloride (Flush Normal Saline 10 Ml) 10 ml IV BID [facility] Last Admin: 12/07/22 08:34 Dose: 10 ml Assessment/ Plan: Nephrology No dyspnea No chest pain No acute events overnight Vitals, medications, blood work and imaging reviewed in the chart. General: In no apparent distress, Oriented x3, Cooperative HEENT: Atraumatic Neck: Supple Respiratory: Clear to auscultation bilaterally, Normal air movement Cardiovascular: Normal pulses, Regular rate/rhythm Gastrointestinal: Soft and benign, Non-distended, Hyperactive Musculoskeletal: No clubbing, No contractures Integumentary: No rashes, No cyanosis Neurological: Abnormal speech Laboratory Data (last 24 hrs) 12/03/22 12/03/22 12/03/22 17:36 17:36 17:36 WBC 5.10 Hgb 11.5 L Hct 34.0 L Plt Count 130 L PT 13.7 H INR 1.25 APTT 42.0 H Sodium 133 L Potassium 4.2 BUN 99 H Creatinine 6.18 H Glucose 152 H Magnesium 2.4 Total Bilirubin 0.4 AST 16 ALT 21 Alkaline Phosphatase 107 Imagings Data: EXAM DESCRIPTION: CT - Ct Stroke Brain Wo Cont - 12/03/2022 5:26 pm CLINICAL HISTORY: Slurred speech COMPARISON: 2015 TECHNIQUE: Computed axial tomography of the head was obtained. All CT scans are performed using dose optimization technique as appropriate and may include automated exposure control or mA/KV adjustment according to patient size. FINDINGS: An intracranial bleed is not seen . The ventricles are normal in caliber. No extra-axial fluid collection is noted. 5.5 centimeter low-density area within the left cerebrum consistent with gliosis probably secondary to old infarct. 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 Fluid within the sinuses/ mastoids is not seen. IMPRESSION: No acute intracranial abnormality is seen. If patient's symptoms persist MRI of the brain would be recommended EXAM DESCRIPTION: RAD - Chest Single View - 12/06/2022 11:22 am CLINICAL HISTORY: s/p HD cath placement Chest pain. COMPARISON: Chest Single View dated 10/13/2018; Chest Single View dated 10/12/2018; Chest Single View dated 08/20/2015; CHEST SINGLE VIEW dated 04/16/2014 FINDINGS: Portable technique limits examination quality. Right-sided venous catheter has tip in the SVC. No postprocedure pneumothorax. No abnormal finding seen to suggest tuberculosis. 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 Serrano
[2022-12-07] MEDS: ATORVASTATIN 80 MG TAB PO SCH (21:51)
[2022-12-07] MEDS: HYDROCODONE/APAP 7.5/325 MG TAB PO PRN (21:55)
[2022-12-08] MEDS: HEPARIN 5000 UNIT/ML 1 ML VIAL SQ SCH ×3 (03:05→17:45)
[2022-12-08 04:29] LABS: Absolute Lymphocytes (CBC) 1.2 K/uL (0.7-4.9); Hematocrit 32.5 % (39.6-49.0); Lymphocytes % 29.1 % (15.3-44.8); MCV 96.4 fL (80-100); MPV 8.1 fL (7.6-11.3); Platelets 101 thou/uL (152-406); RBC Red Blood Cell Count 3.38 M/uL (4.33-5.43)
[2022-12-08 04:52] LABS: Potassium 3.7 mEq/L (3.5-5.1)
[2022-12-08 05:08] LABS: Blood Morphology Comment NOT SEEN (NOT SEEN); Platelet Estimate ADEQ
[2022-12-08] MEDS: INSULIN -REGULAR HUMAN 50 UNIT/0.5 ML ML SQ SCH ×4 (07:30→21:00)
[2022-12-08] MEDS: NA CHLORIDE 0.9% 1,000 ML IV SCH ×2 (09:20)
[2022-12-08] MEDS: ASPIRIN EC 81 MG TAB PO SCH (09:31)
[2022-12-08] MEDS: CLOPIDOGREL 75 MG TABLET PO SCH (09:31)
[2022-12-08] MEDS: DOCUSATE NA 100 MG CAP PO SCH ×2 (09:32→20:25)
[2022-12-08] MEDS: EPOETIN ALFA 10,000 UNIT/ML VIAL IV SCH (13:30)
--- NOTE | 2022-12-08 15:41 | P.PN ---
Subjective Date of Service: 12/08/22 Chief Complaint: CVA evaluation Patient has no new complaint. His speech is still slurred. He has been tolerating diet. Physical Examination - Vital Signs Temperature: 97.0 F Blood Pressure: 107/69 Pulse: 71 Respirations: 14 Pulse Ox (%): 99 Assessment And Plan - Plan Physical Exam General: Alert, In no apparent distress, Oriented x3 HEENT: PERRLA, EOMI Respiratory: Clear to auscultation bilaterally Cardiovascular: No edema, regular rhythm. Gastrointestinal: Normal bowel sounds, Soft and benign Neurological: Slurred speech, no focal motor deficit. Diagnosis Dysarthria History of CVA hyponatremia Normocytic anemia hemoglobin Thrombocytopenia Generalized weakness Acute renal failure CAD Hypertension Diabetes uncontrolled hyperglycemia Assessment plan History of CVA, slurred speech Neuro consulted, seen by speech. Seen by PT. CT Brain -No acute intracranial abnormality is seen. 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 Continue Lipitor 80 mg nightly for hyperlipidemia. Continue home dose aspirin. Acute renal failure acute on chronic kidney disease stage IV nephrology Dr. Burton seen patient. Status post dialysis catheter placement and hemodialysis yesterday. Further hemodialysis per Dr. Burton Social service consulted for outpatient hemodialysis seat. Thrombocytopenia Monitor CBC CAD Hypertension Hold home antihypertensives due to borderline low blood pressure. Continue aspirin and Plavix Diabetes mellitus type II Blood glucose readings improved. Insulin sliding scale for glucose management Full code DVT prophylaxis: heparin Physician Review: Patient Assessed, Agree with Above Assessment and Plan
[2022-12-08] MEDS: ATORVASTATIN 80 MG TAB PO SCH (20:25)
--- NOTE | 2022-12-08 21:02 | P.PN ---
Date of Service: 12/08/22 Vital Signs Temp Pulse Resp BP Pulse Ox 97.0 F 70 16 124/67 98 12/08/22 16:00 12/08/22 16:00 12/08/22 16:00 12/08/22 16:00 12/08/22 16:00 Medications Acetaminophen (Acetaminophen 500 Mg Tab) 500 mg PO Q4HP PRN PRN Reason: Pain scale 2-4 (Mild) Hydrocodone Bitart/Acetaminophen (Hydrocodone/Apap 7.5/325 Mg Tab) 1 tab PO Q6H PRN PRN Reason: Pain scale 8-10 (Severe) Last Admin: 12/07/22 21:55 Dose: 1 tab Aspirin (Aspirin Ec 81 Mg Tab) 81 mg PO DAILY [facility] Last Admin: 12/08/22 09:31 Dose: 81 mg Atorvastatin Calcium (Atorvastatin 80 Mg Tab) 80 mg PO BEDTIME [facility] Last Admin: 12/08/22 20:25 Dose: 80 mg Clopidogrel Bisulfate (Clopidogrel 75 Mg Tablet) 75 mg PO DAILY [facility] Last Admin: 12/08/22 09:31 Dose: 75 mg Docusate Sodium (Docusate Na 100 Mg Cap) 100 mg PO BID [facility] Last Admin: 12/08/22 20:25 Dose: 100 mg Epoetin Matt (Epoetin Matt 10,000 Unit/Ml Vial) 10,000 unit IV EVERY HD [facility] Last Admin: 12/08/22 13:30 Dose: 10,000 unit Ergocalciferol (Drisdol (Vitamin D=Ergocalciferol) 07439 Unit Cap) 50,000 unit PO Q7D [facility] Last Admin: 12/04/22 12:16 Dose: 50,000 unit Heparin Sodium (Porcine) (Heparin 5000 Unit/Ml 1 Ml Vial) 5,000 unit SQ Q8HR [facility] Last Admin: 12/08/22 17:45 Dose: 5,000 unit Heparin Sodium (Porcine) (Heparin 1,000 Unit/Ml Vial) 6,000 unit IV EVERY HD PRN PRN Reason: AFTER EACH Last Admin: 12/08/22 15:16 Dose: 6,000 unit Heparin Sodium (Porcine) (Heparin 1,000 Unit/Ml Vial) 2,000 unit IV EVERY HD P RN PRN Reason: Prevent HD System Clotting Last Admin: 12/08/22 12:42 Dose: 2,000 unit Sodium Chloride (Ns 1000 Ml Ivbag) 1,000 mls @ 75 mls/hr IV .[id number] [facility] Last Admin: 12/08/22 09:20 Dose: Not Given Albumin Human (Albumin 25%) 50 mls @ 100 mls/hr IV EVERY HD [facility] Insulin Human Regular (Insulin -Regular Human 50 Unit/0.5 Ml Ml) 0 unit SQ ACHS [facility]; Protocol Last Admin: 12/08/22 16:30 Dose: Not Given Mannitol (Mannitol 25% 12.5 Gm/50 Ml Vial) 12.5 gm IV EVERY HD PRN PRN Reason: BP SUPPORT DURING HD Last Admin: 12/08/22 12:45 Dose: 12.5 gm Sodium Chloride (Flush Normal Saline 10 Ml) 10 ml IV BID [facility] Last Admin: 12/08/22 20:25 Dose: 10 ml Assessment/ Plan: Nephrology No dyspnea No chest pain No acute events overnight Vitals, medications, blood work and imaging reviewed in the chart. General: In no apparent distress, Oriented x3, Cooperative HEENT: Atraumatic Neck: Supple Respiratory: Clear to auscultation bilaterally, Normal air movement Cardiovascular: Normal pulses, Regular rate/rhythm Gastrointestinal: Soft and benign, Non-distended, Hyperactive Musculoskeletal: No clubbing, No contractures Integumentary: No rashes, No cyanosis Neurological: Abnormal speech Laboratory Data (last 24 hrs) 12/03/22 12/03/22 12/03/22 17:36 17:36 17:36 WBC 5.10 Hgb 11.5 L Hct 34.0 L Plt Count 130 L PT 13.7 H INR 1.25 APTT 42.0 H Sodium 133 L Potassium 4.2 BUN 99 H Creatinine 6.18 H Glucose 152 H Magnesium 2.4 Total Bilirubin 0.4 AST 16 ALT 21 Alkaline Phosphatase 107 Imagings Data: EXAM DESCRIPTION: CT - Ct Stroke Brain Wo Cont - 12/03/2022 5:26 pm CLINICAL HISTORY: Slurred speech COMPARISON: 2015 TECHNIQUE: Computed axial tomography of the head was obtained. All CT scans are performed using dose optimization technique as appropriate and may include automated exposure control or mA/KV adjustment according to patient size. FINDINGS: An intracranial bleed is not seen . The ventricles are normal in caliber. No extra-axial fluid collection is noted. 5.5 centimeter low-density area within the left cerebrum consistent with gliosis probably secondary to old infarct. 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 Fluid within the sinuses/ mastoids is not seen. IMPRESSION: No acute intracranial abnormality is seen. If patient's symptoms persist MRI of the brain would be recommended EXAM DESCRIPTION: RAD - Chest Single View - 12/06/2022 11:22 am CLINICAL HISTORY: s/p HD cath placement Chest pain. COMPARISON: Chest Single View dated 10/13/2018; Chest Single View dated 10/12/2018; Chest Single View dated 08/20/2015; CHEST SINGLE VIEW dated 04/16/2014 FINDINGS: Portable technique limits examination quality. Right-sided venous catheter has tip in the SVC. No postprocedure pneumothorax. No abnormal finding seen to suggest tuberculosis. 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 Serrano
[2022-12-09] MEDS: HEPARIN 5000 UNIT/ML 1 ML VIAL SQ SCH ×2 (00:26→09:09)
--- NOTE | 2022-12-09 07:19 | P.PN ---
Date of Service: 12/09/22 Subjective: doing okay denies trouble swallowing, +feels speech is okay no acute events overnight ambulating ROS: 10 point ROS as noted above, otherwise negative Physical Exam: GEN: Alert, oriented, NAD HEENT: Normal conjunctiva, sclera anicteric CV: Regular rate and rhythm, no edema Pulm: Nonlabored respirations on room air ABD: Soft, nontender, nondistended MSK: No joint tenderness Integumentary: No rashes Neuro: Normal speech, normal affect vitals reviewed Problem List: Dysarthria History of CVA hyponatremia Normocytic anemia hemoglobin Thrombocytopenia Generalized weakness Acute renal failure CAD Hypertension Diabetes uncontrolled hyperglycemia Dysarthria History of CVA CT Brain (12/03): No acute intracranial abnormality is seen. 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 Speech/PT consult Neuro consulted Continue aspirin, plavix, statin f/u ~1 month as outpatient UBALDO on CKD [address] Burton seen patient. s/p dialysis catheter placement and hemodialysis 12/06 Further hemodialysis per nephro ss/cm consulted for outpatient hemodialysis seat. CAD Hypertension Hold home antihypertensives due to borderline low blood pressure. Continue aspirin and Plavix Thrombocytopenia. Monitor CBC NIDDM2. SSI VTE: heparin sq Code: Full Dispo: home
[2022-12-09] MEDS: INSULIN -REGULAR HUMAN 50 UNIT/0.5 ML ML SQ SCH ×2 (07:30→11:30)
[2022-12-09] MEDS: CLOPIDOGREL 75 MG TABLET PO SCH (09:09)
[2022-12-09] MEDS: DOCUSATE NA 100 MG CAP PO SCH (09:09)
[2022-12-09] MEDS: ASPIRIN EC 81 MG TAB PO SCH (09:09)
[2022-12-09 12:05] VITALS: BP 117/62; TEMP 97
--- NOTE | 2022-12-09 12:17 | P.DS ---
Admission Date: 12/03/22 Discharge Date: 12/09/22 Disposition: ROUTINE DISCHARGE Discharge Condition: FAIR Reason for Admission: CVA evaluation Consultations: General Surgery - Dr. Chowdhury Nephrology - Dr. Burton Neurology - Dr. Rashid Brief History of Present Illness: 77 yo M, PMH: Diabetes - NIDDM; Hypertension; Myocardial infarction; Pacemaker Patient presents to ER with complaints of Slurred speech, facial droop. Onset: The symptoms/episode began/occurred 1 week(s) ago. occurred at home, occurred while the patient was. Denies fever, headache, neck stiffness, seizure, syncope, double vision, visual field changes, loss of vision, weakness. The symptoms were moderate in the emergency department the symptoms are unchanged. Current symptoms: dysphasia. The patient has not experienced similar symptoms in the past. The patient has not experienced similar symptoms in the past. Patient sent from [place] [facility] for stroke evaluation. Patient reports not feeling right for the last week with dizziness and feeling like he is going to fall. Was noted to have a facial droop and not acting normal per his physician. No head injury. No fall. No changes in medication. Has had a stroke before but thinks only takes aspirin. Symptoms started about 1 week ago progressively worsening. NIH Stroke Scale Scores: NIHSS Score: [address] CT Brain -No acute intracranial abnormality is seen. Chest X-ray shows No acute cardiopulmonary disease. Hospital Course: Problem List: Dysarthria, suspected TIA vs CVA History of CVA Hyponatremia, mild Normocytic anemia hemoglobin Thrombocytopenia Generalized weakness Acute renal failure CAD Hypertension Diabetes uncontrolled hyperglycemia Patient presented with slurred speech, facial droop. CT Brain noted old cerebellar infarct. No acute intracranial abnormality. MRI was unable to be obtained at this facility due to patient having a pacemaker. Neurology was consulted. Patient seen and evaluated Dr. Rashid who recommended aspirin, Plavix for at least 6 weeks, folic acid, and statin. No further inpatient work up this hospitalization. Follow up with Neurology as outpatient in ~ 1 month for further evaluation / workup. On day of discharge patient was able to ambulate unassisted, tolerating diet, and was asking to be discharged home. During his hospitalization, patient was noted to have an UBALDO on CKD 4. Nephrology was consulted who recommended patient start dialysis. HD CVC was placed by Dr. Chowdhury on 12/06 and patient received dialysis without any issues/complications. Patient was approved for chair time at [facility] and was deemed stable for discharge. Patient is to receive dialysis 3 times a week per nephrology. [facility] Medications: Aspirin, statin, folic acid, plavix for stroke prevention/treatment stop metformin due to renal function worsening / on dialysis. Follow up: PCP 3-5 days Nephrology in 1 week Neurology in ~1 month Physical Exam: GEN: Alert, oriented, NAD HEENT: Normal conjunctiva, sclera anicteric CV: Regular rate and rhythm, no edema Pulm: Nonlabored respirations on room air ABD: Soft, nontender, nondistended Neuro: mild slurred speech, normal affect Vital Signs/Physical Exam: Temp Pulse Resp BP Pulse Ox 97.0 F 70 16 117/62 99 12/09/22 12:00 12/09/22 12:00 12/09/22 12:00 12/09/22 12:00 12/09/22 12:00 Laboratory Data at Discharge: WBC 4.00 thou/uL (4.3-10.9) L 12/08/22 03:54 Hgb 11.2 g/dL (13.6-17.9) L 12/08/22 03:54 Hct 32.5 % (39.6-49.0) L 12/08/22 03:54 Plt Count 101 thou/uL (152-406) L 12/08/22 03:54 PT 13.7 SECONDS (9.5-12.5) H 12/03/22 17:36 INR 1.25 12/03/22 17:36 APTT 42.0 SECONDS (24.3-36.9) H 12/03/22 17:36 Sodium 136 mEq/L (136-145) 12/08/22 03:54 Potassium 3.7 mEq/L (3.5-5.1) 12/08/22 03:54 BUN 37 mg/dL (7-18) H 12/08/22 03:54 Creatinine 3.50 mg/dL (0.70-1.30) H 12/08/22 03:54 Glucose 75 mg/dL (74-106) 12/08/22 03:54 Uric Acid 11.5 mg/dL (3.5-7.2) H 12/05/22 06:55 Phosphorus 3.2 mg/dL (2.5-4.9) 12/06/22 07:13 Magnesium 2.1 mg/dL (1.6-2.4) 12/06/22 07:13 Total Bilirubin 0.4 mg/dL (0.2-1.0) 12/03/22 17:36 AST 16 U/L (15-37) 12/03/22 17:36 ALT 21 U/L (16-61) 12/03/22 17:36 Alkaline Phosphatase 107 U/L (45-117) 12/03/22 17:36 Triglycerides 380 mg/dL (<150) H 12/04/22 06:05 Cholesterol 297 mg/dL (<200) H 12/04/22 06:05 HDL Cholesterol 33 mg/dL (40-60) L 12/04/22 06:05 Cholesterol/HDL Ratio 9.00 12/04/22 06:05 Home Medications: Alogliptin Benzoate [Alogliptin] 25 mg PO DAILY 10/12/18 Aspirin [Aspir-Low] 81 mg PO DAILY 10/12/18 allopurinoL [Allopurinol] 100 mg PO BID PRN 10/12/18 Atorvastatin Calcium [Lipitor] 80 mg PO BEDTIME #30 tab 12/05/22 Clopidogrel Bisulfate [Plavix] 75 mg PO DAILY #30 tab 12/05/22 Folic Acid 1 mg PO DAILY #30 tab 12/05/22 Vitamin D [Drisdol*] 50,000 unit PO Q7D #4 cap 12/05/22 New Medications: Vitamin D [Drisdol*] 50,000 unit PO Q7D #4 cap Folic Acid 1 mg PO DAILY #30 tab Atorvastatin Calcium [Lipitor] 80 mg PO BEDTIME #30 tab Clopidogrel Bisulfate [Plavix] 75 mg PO DAILY #30 tab Physician Discharge Instructions: Patient presented with slurred speech, facial droop. CT Brain noted old cerebellar infarct. No acute intracranial abnormality. MRI was unable to be obtained at this facility due to patient having a pacemaker. Neurology was consulted. Patient seen and evaluated Dr. Rashid who recommended aspirin, Plavix for at least 6 weeks, folic acid, and statin. No further inpatient work up this hospitalization. Follow up with Neurology as outpatient in ~ 1 month for further evaluation / workup. On day of discharge patient was able to ambulate unassisted, tolerating diet, and was asking to be discharged home. During his hospitalization, patient was noted to have an UBALDO on CKD 4. Nephrology was consulted who recommended patient start dialysis. HD CVC was placed by Dr. Chowdhury on 12/06 and patient received dialysis without any issues/complications. Patient was approved for chair time at [facility] and was deemed stable for discharge. Patient is to receive dialysis 3 times a week per nephrology. [facility] Medications: Aspirin, statin, folic acid, plavix for stroke prevention/treatment stop metformin due to renal function worsening / on dialysis. Follow up: PCP 3-5 days Nephrology in 1 week Neurology in ~1 month Diet: AHA Activity: Fall precautions Followup: OOT,OOT [Primary Care Provider] - 1-2 Weeks Time spent managing pt's care (in minutes): 45
== END 2022-12-09 15:46 | disposition home or self-care (01) | DRG 65 ==
LOC: ER 16:28 → ERHOLD 21:36 → 4TH 23:03
PROVIDERS: ADMIT Internal Medicine; ATTEND Hospitalist
PROC: 02HV33Z Insertion of Infusion Device into Superior Vena Cava, Percutaneous Approach (ICD-10-PCS; 2022-12-06)
PROC: 5A1D70Z Performance of Urinary Filtration, Intermittent, Less than 6 Hours Per Day (ICD-10-PCS; 2022-12-06)
PROC: 0JH63XZ Insertion of Tunneled Vascular Access Device into Chest Subcutaneous Tissue and Fascia, Percutaneous Approach (ICD-10-PCS; principal; 2022-12-06 09:30)
DX: I63.9 Cerebral infarction, unspecified (principal); E87.1 Hypo-osmolality and hyponatremia; N17.9 Acute kidney failure, unspecified; N18.4 Chronic kidney disease, stage 4 (severe); I50.22 Chronic systolic (congestive) heart failure; I13.0 Hypertensive heart and chronic kidney disease with heart failure and stage 1 through stage 4 chronic kidney disease, or unspecified chronic kidney disease; E11.22 Type 2 diabetes mellitus with diabetic chronic kidney disease; E11.65 Type 2 diabetes mellitus with hyperglycemia; D63.1 Anemia in chronic kidney disease; D69.6 Thrombocytopenia, unspecified; F17.210 Nicotine dependence, cigarettes, uncomplicated; I25.10 Atherosclerotic heart disease of native coronary artery without angina pectoris; I25.2 Old myocardial infarction; R29.703 NIHSS score 3; R47.1 Dysarthria and anarthria; R47.81 Slurred speech; R29.810 Facial weakness; Z95.5 Presence of coronary angioplasty implant and graft; Z79.82 Long term (current) use of aspirin; Z79.02 Long term (current) use of antithrombotics/antiplatelets; Z79.84 Long term (current) use of oral hypoglycemic drugs; Z79.899 Other long term (current) drug therapy; Z91.041 Radiographic dye allergy status; Z95.810 Presence of automatic (implantable) cardiac defibrillator
CPT/HCPCS: 36415; 70450; 71045; 76000; 80048; 80061; 80076; 81001; 81003; 82043; 82435; 82533; 82570; 82947; 83735; 84100; 84132; 84156; 84300; 84484; 84550; 85025; 85610; 85730; 86704; 86706; 87340; 90935; 92523; 93005; 96360; 97116; 97161; 97530; 99285; A4216; C1752; J1644; J2001; J2150; J2250; J2371; J2704; J3010; J7030; J7040; Q4081